=== PATIENT | female | born 1935 | race African-American/Black ===

== ENCOUNTER 2016-11-30 08:00 | Inpatient (IN) | payer MEDICARE ==
[~2016-11-30] VITALS: Ht 160 cm; Wt 101.6 kg
--- NOTE | ~2016-11-30 | OP ---
PATIENT NAME: TAWANA MARLOW MEDICAL RECORD: [id number] :37 LOCATION:D. D.2108 ADMISSION DATE:12/02/16 SURGEON: DOM SHEARER MD DATE OF OPERATION: 11/30/2016 REFERRED BY: Dr. Aníbal Hays of [place]. PREOPERATIVE DIAGNOSIS: Malfunctioning tunneled dialysis catheter with a catheter displacement and thrombosed left brachial axillary PTFE arteriovenous graft. POSTOPERATIVE DIAGNOSIS: Malfunctioning tunneled dialysis catheter with a catheter displacement and thrombosed left brachial axillary PTFE arteriovenous graft, with central venous obstruction due to chronic indwelling tunneled dialysis catheter. OPERATION PERFORMED: Ultrasound-guided basilic vein access in the left arm with micropuncture technique and performance of a left upper extremity venogram, then removal of tunneled dialysis catheter from the left internal jugular vein, performance of a superior vena cavogram followed by insertion of a HeRO outflow device positioning its tip deep in the right atrium. Then, insertion of an Acuseal PTFE early stick graft in the left arm between the old brachial artery anastomosis and the HeRO outflow stent in the deltopectoral groove. SURGEON: Dom Shearer MD ANESTHESIA: General endotracheal per SEISMOGRAPHER. LOCAL PATHOLOGIST: Dr. Emmanuel Panda. PREOPERATIVE NOTE: Ms. Marlow is a 81-year-old -Vietnamese female with end-stage renal disease, dependent on hemodialysis. She has had several PTFE grafts a couple in the right upper extremity and 1 in the left upper extremity, the 1 on the left has had multiple interventions and at present is thrombosed. She has been dialyzing now for quite a long time with a tunneled dialysis catheter placed in the left internal jugular vein. She is brought to the operating room at this time with plans to perform a venogram to see if it is likely a new brachial artery to axillary vein graft. Graft would be the thing to do or rather, she perhaps should have a HeRO graft implanted. I do have a 6 mm diameter ProCol graft here available for use today if she is going to have the brachial axillary graft. PROCEDURE: With patient under general endotracheal anesthesia, she was prepped and draped in a sterile manner. I first made an incision above the antecubital space and exposed the previous brachial artery PTFE graft anastomosis. I occluded the brachial artery and transected the old PTFE graft and then performed a thrombectomy with a Khadijah balloon catheter, 4-Equatorial Guinean. I then flushed the artery and the stump of the graft with heparinized saline and occluded the graft there by just using local heparinization. I chose a 6-mm diameter Acuseal early stick PTFE graft and sutured it end-to-end to the stump of the old PTFE graft with running 6-0 Prolene. The anastomosis was further sealed with BioGlue. I then allowed back bleeding through the graft and demonstrated good brisk arterial inflow and then again flushed the graft and the artery with heparinized saline and clamped it. I then went to the neck and made an incision at the base of the neck on the left and exposed the tunneled OPERATIVE REPORT [id number] TAWANA MARLOW dialysis catheter, clamped and divided it. I then bluntly dissected the Dacron felt cuff from the surrounding tissues at the exit site and removed that portion and discarded it. I inserted a guidewire via the remaining intravascular segment of catheter and found that the guidewire actually passed into the azygos venous system. I removed the remaining portion of the catheter and with an angled Glidewire, directed down the superior vena cava and into the right atrium and then on down into the inferior vena cava. I performed a catheter exchange placing an Amplatz wire deep in the inferior vena cava and inserted a 7-Equatorial Guinean sheath in order to perform a venogram. I did use a pursestring suture of 3-0 Vicryl. The superior vena cavogram was performed. This demonstrated mild general stenosis of the brachiocephalic vein and no evidence of significant superior vena cava, obstruction or any abnormality of the right atrium. I subsequently passed dilators over the Amplatz wire and lastly the HeRO outflow stent was inserted over an 8 mm diameter angioplasty balloon. The tip of the device was placed deep in the right atrium just above the cavoatrial junction. Contrast was injected confirming appropriate placement. The outflow device was then flushed with heparinized saline and clamped. I made an incision in the deltopectoral groove and carried that down to the investing pectoral fascia. Hemostasis was obtained with electrocautery and the HeRO device was pulled through a subcutaneous tunnel into that incision. I made a subcutaneous tunnel and pulled the Acuseal graft from the incision down just above the elbow up to the deltopectoral groove and it was then connected to the HeRO outflow device and when occluding clamps were released, excellent flow was immediately established and the graft manifest by strong palpable thrill and appropriate pulsation in the graft. The Acuseal HeRO junction was secured to the pectoral fascia with a 2-0 Prolene suture. The wounds were irrigated with Ancef/gentamicin solution. They were closed with interrupted inverted 3-0 Vicryl. The patient was given 20 mcg of DDAVP to help achieve hemostasis and the skin incisions were closed with running intracuticular 4-0 Monocryl. The skin incisions were sealed with glue and dressed with Maxorb Ag, Tegaderm and Cavilon skin prep. The patient was awakened and extubated and taken to the recovery room. Blood loss in the operation was less than 100 cc, certainly none was replaced. All sponges, instruments and needles, etc. were accounted for. No drain was used and no surgical specimen was submitted for histopathology. PLAN: I plan for the patient to remain in hospital this evening and have dialysis here tomorrow via Acuseal protocol. Whether she can go home tomorrow or the next, will just depend on how she does at 81 years old after a significant operation under general anesthesia. When she does go home, it is important that the dialysis unit in [place] know about Acuseal protocol and follow that for the next 2 weeks. I will plan to see the patient back in my office in 2 weeks as well. The bandages will probably need to be changed within the next 4-6 or 7 days and when the dressings are removed, it can be replaced with simple sterile dry gauze bandages. TRANSINT:[id number] Voice Confirmation ID: [id number] DOCUMENT ID: [id number] CC: Dr. Aníbal Hays [place] [phone] OPERATIVE REPORT [id number] TAWANA MARLOW JAMES MD CC: EMMANUEL PANDA MD and DR. ANÍBAL HAYS [phone] DICTATION DATE: 11/30/161733 TREE LOADER MEAT: 11/30/162156 ADM IN [id number] [place] [address]
--- NOTE | ~2016-11-30 | OP ---
PATIENT NAME: TAWANA MARLOW MEDICAL RECORD: [id number] :37 LOCATION:D.M2 D.2108 ADMISSION DATE:12/02/16 SURGEON: DOM SHEARER MD DATE OF OPERATION: 12/01/2016 PREOPERATIVE DIAGNOSIS: Postoperative bleeding on postoperative day 1 following implantation of a HeRO AV graft in the left arm. POSTOPERATIVE DIAGNOSIS: Postop bleeding of unclear etiology, likely associated with heparin anticoagulation administered at hemodialysis at first access of HeRO. OPERATION PERFORMED: Wound exploration and evacuation of hematoma and repeat wound closure. SURGEON: Dom Shearer MD ANESTHESIA: General with LMA per CAP MACHINE OPERATOR. REFERRING PHYSICIAN: Dr. Hays in [place], asphalt machine operator and locally Dr. Panda. PREOPERATIVE NOTE: Ms. Marlow is a 81-year-old morbidly obese -Cook Islander female with end-stage renal disease, who only yesterday had a HeRO AV graft implanted in the left upper extremity that was done with an Acuseal PTFE portion, so that she could dialyze today as during the operation, I removed her tunneled dialysis catheter from the left internal jugular vein. Despite use of the "Acuseal protocol" during dialysis today, the patient began hemorrhage quite heavily from the incision over the distal arm around the site of the arterial anastomosis. She has returned to the operating room at this time urgently, though she is not actively bleeding at this time. Under general anesthetic with an LMA per CAP MACHINE OPERATOR, the patient was found to have no adequate IV and so I examined her with ultrasound and noted the right internal jugular vein to be absent or small, probably from prior catheter use. I then went on to insert an ARROWg+lexis triple lumen catheter percutaneously without tunneled using ultrasound guidance via the left common femoral vein. All 3 lumens were accessed and aspirated, they returned blood easily. They were then flushed with saline and dilute heparin solution, clamped and capped and then the catheter was sutured to the skin near the entry site with 2-0 Prolene and a chlorhexidine Biopatch was applied and a sterile adhesive dressing. The patient's arm was then undressed and prepped and draped in a sterile manner. I removed the bloody Maxorb calcium alginate dressing from the incision along with the skin glue and then opened the incision gently. I found that there was only a modest amount of clot or hematoma present within the wound and there was really no active bleeding. A few sites of capillary oozing were treated with electrocautery. The wound was irrigated and then infiltrated with 0.25% Marcaine with epinephrine. I placed some fibrillar hemostatic material around the arterial anastomosis, which was intact and showed no evidence, whatsoever of having been partially disrupted or bleeding. The wound was closed with interrupted inverted 3-0 Vicryl and then running intracuticular 4-0 Monocryl and Dermabond glue and it was once again dressed with Maxorb Ag, Tegaderm and Cavilon skin prep. The patient was awakened from her anesthetic and taken to the recovery room in OPERATIVE REPORT [id number] TAWANA MARLOW stable condition. Blood loss during the operation was 0. All sponges, instruments and needles were accounted for. No drain was used and no surgical specimen was submitted for histopathology. PLAN: The patient should have dialysis tomorrow via the HeRO/Acuseal graft and probably as well on Tuesday and then if all is well, she can be discharged to home. I have asked the [employer] parts sales advisor to contact the dialysis unit in [place] to be sure that they are familiar with an understanding the need for "acuseal protocol" for the next 2 weeks. The patient is to be scheduled to return appointment to see me in my office at around 2 weeks. TRANSINT:[id number] Voice Confirmation ID: [id number] DOCUMENT ID: [id number] CC: Dr. Aníbal Hays, DOM SHEARER MD CC: EMMANUEL PANDA MD and DR. ANÍBAL HAYS [phone] DICTATION DATE: 12/01/162044 TILE FINISHER: 12/01/16 392 ADM IN [id number] [place] [address]
[2016-11-30 08:57] LABS: BASOPHILS 0.2 % (0-2); EOSINOPHILS 4.2 % (0-7); HEMATOCRIT 38.2 % (36.0-48.0); HEMOGLOBIN 11.8 g/dL (12-16); IMMATURE GRANULOCYTES 0.2 % (0-5); LYMPHOCYTES 25.5 % (15-50); MCH 25.5 pg (26.0-34.0); MCHC 30.9 g/dL (31.0-37.0); MCV 82.5 fL (80.0-100.0); MEAN PLATELET VOLUME 10.9 fL (7.4-10.4); MONOCYTES 12.5 % (2-11); NEUTROPHILS 57.4 % (40-80); PLATELET COUNT 132 10x3/uL (130-400); RBC 4.63 10x6/uL (4.00-5.40); RDW 15.8 % (11.5-14.5)
[2016-11-30 09:06] LABS: ANION GAP 12.5 mmol/L (8-16); CALCIUM 9.7 mg/dL (8.5-10.1); CARBON DIOXIDE 27.4 mmol/L (21.0-32.0); POTASSIUM - SERUM 3.9 mmol/L (3.5-5.1)
[2016-11-30 09:08] LABS: APTT 37.4 SECONDS (22.8-39.4); INR 1.21 (0.85-1.17); PROTIME 15.2 SECONDS (11.6-15.0)
[2016-11-30] MEDS ORDERED: RENVELA800 MG PO (10:43)
[2016-11-30 10:58] VITALS: BP 180/83; BMI 39.9
[2016-11-30 20:00] VITALS: BP 153/63
--- NOTE | 2016-11-30 20:04 | NUR ---
REPORT CALLED TO BARTOLO FRANCIS RN, MED 2, PATIENT TRANSPORTED BY STRETCHER TO ROOM 2108, PATIENT WITHOUT COMPLAINTS OR NOTED NEEDS, LEFT ARM AV GRAFT WITH VERY WELL PALPATED THRILL, TWO SMALL DRESSINGS C/D/I
--- NOTE | 2016-11-30 20:22 | NUR ---
PT ARRIVED ON W/C VIA STRECTHER BY HOSPITAL STAFF AND DAUGHTER. TRANSFERED PT FROM STRETCHER TO W/C. PT IS ALERT & ORIENTED. NO O2. RIGHT UPPER ARM 22GAUGE SALINE LOC. LEFT ARM RESERVE. LEFT AC AND SHOULDER DRESSING. BED IN LOWEST POSITION AND CALL LIGHT WITHIN REACH.
[2016-12-01] VITALS (11 sets, daily range): BP systolic 114–180; BP diastolic 42–92; Ht 160 cm; Wt 101.6 kg
--- NOTE | 2016-12-01 00:39 | NUR ---
RN TO DO ASSESSMENT.
--- NOTE | 2016-12-01 02:11 | NUR ---
PT IN BED WITH HOB ELEVATED. RESTING QUIETLY. DAUGHTER AT BEDSIDE. BED IN LOWEST POSITION AND CALL LIGHT WITHIN REACH.
--- NOTE | 2016-12-01 07:46 | NUR ---
AM ROUNDING- RECIEVED REPORT FROM CODE NUMBER STAMPER NURSE BARTOLO. PT IS CURRENTLY LAYING IN BED WITH EYES OPEN RESTING. DAUGHTER IS AT BEDSIDE. PT IS ASKING WHEN SHE WILL GO FOR DIALYSIS. I INFORMED PT THAT I AM NOT EXACTLY SURE WHAT TIME SHE WILL BE GOING AND THAT THEY WILL CALL WHEN SHE NEEDS TO GO. ON ROOM AIR. NO MONITOR. IV SEEN TO RIGHT UPPER ARM. RESERVE LEFT ARM FOR AVF. CLEAN, DRY AND INTACT DRESSING SEEN. DRESSING SEEN TO LEFT UPPER CHEST FROM PROCEDURE PER REPORT. NO NEED AT CURRENT TIME. JAYLENE MCFARLAND WENT AND GAVE PT ORANGE JUICE REQUESTED. WILL CONTINUE TO MONITOR AND CONTINUE WITH PLAN OF CARE.
--- NOTE | 2016-12-01 14:54 | NUR ---
PT TO DIALYSIS VIA WHEELCHAIR.
--- NOTE | 2016-12-01 16:19 | NUR ---
PT BACK FROM DIALYSIS, JULIA RN NOTIFIED ME OF PT BLEEDING IN GRAFT SITE. DR. NUÑEZ WENT TO DIALYSIS TO ASSESS PT AND IS AWARE. PER DR. NUÑEZ PT IS TO HAVE SURGERY WITH DR. COLON AND DR. COLON IS AWARE. PT IS AWARE TO NOT EAT OR DRINK ANYTHING. LOC MOCTEZUMA, KENO WRITER/RUNNER IS GETTING CONSENTS SIGNED AND DOING PRE-OP CHECKLIST. LEFT UPPER ARM SITE IS COVERED WITH KOBAN CURRENTLY WITH NO SIGN OF BLEEDING. WILL CONTINUE TO MONITOR.
--- NOTE | 2016-12-01 16:48 | NUR ---
PT PREOP FOR OR. CONSENTS SIGNED . PREOP MEDS GIVEN. AND LR 1000CC STARTED.
--- NOTE | 2016-12-01 16:52 | NUR ---
EKG DONE AND PLACED IN CHART. PT PLACED ON MONITOR ORDERED. LOC MOCTEZUMA, UNIT MANGAGER HAD CONSENTS SIGNED AND PLACED IN CHART. PT IS NPO ORDERED. NO BLEEDING SEEN FROM LEFT UPPER ARM. WILL CONTINUE TO MONITOR.
--- NOTE | 2016-12-01 18:16 | NUR ---
Patient Name: TAWANA MARLOW Admission Status: Elective Accout number: [id number] Admission Date: 11-30-2016 : 1935 Admission Diagnosis: Attending: JANNY Current LOS: 1 Anticipated DC Date: Planned Disposition: Home Primary Insurance: MEDICARE A & B Discharge Planning Comments: * Is the patient Alert and Oriented? Yes 0 * How many steps to enter\exit or inside your home? NONE 0 * PCP NONE 0 * [facility]acy [facility] IN [place] 0 * Preadmission Environment Home with Family 0 * ADLs Partial Dependent 0 * Partial ADLs (Assistance needed) Bathing Medication Management Transfers 0 * Equipment Nebulizer Oxygen Walker 0 * Other Equipment HOME OXYGEN ONLY-USES NEEDED [place] - MEDICAL EQUIPMENT PROVIDER 0 * List name and contact numbers for known caregivers / representatives who currently or will assist patient after discharge: OPHELIA FERNANDEZ DTR, [phone] 0 * Community resources currently utilized Other 0 * Please name any agencies selected above. OUTPATIENT DIALYSIS, M/W/F, 0430 AM, [facility] IN [place], [facility] MEDICAID TRANSPORTATION 0 * Additional services required to return to the preadmission environment? No 0 * Can the patient safely return to the preadmission environment? Yes 0 * Has this patient been hospitalized within the prior 30 days at any hospital? No 0 CM RECEIVED REQUEST FROM TILE PICKER TO ASSIST PT'S DAUGHTER WITH CONTACTING MEDICAID TRANSPORTATION FOR RIDE HOME TODAY. CM MET WITH PT AND DAUGHTER IN ROOM TO DISCUSS DISCHARGE PLANNING AND NEEDS. PT REPORTS LIVING AT HOME DEPENDENT WITH ADULT DAUGHTER. DAUGHTER ASSISTES WITH GETTING PT UP, BATHING AND MEDICATION NEEDED. DAUGHTER SOMETIMES ACCOMPANIES PT ON MEDICAID BUS TO DIALYSIS AN ATTENDANT. PT HAS HOME OXYGEN, NEBULIZER AND WALKER FROM [facility]. PT HAS DIALYSIS AT [facility] ON MWF 0430AM SCHEDULE AND USES MEDICAID TRANSPORTATION SERVICES. CM DISCUSSED AVAILABILITY OF HOME HEALTH, REHAB SERVICES AND MEDICAL EQUIPMENT. PT DENIES DISCHARGE NEEDS AT THIS TIME. PT'S DAUGHTER REPORTS THEY ARE KEEPING HER MOTHER FOR SURGERY AND DAUGHTER WANTS MEDICAID TRANSPORT TO TAKE HER HOME AT NO COSTS. CM EXPLAINED THAT MEDICAID TRANSPORT WILL NOT DO THIS FOR FREE. DAUGHTER INSISTED THAT CM CALL [facility] DEVELOPMENT ASSOCIATE [facility] TO REQUEST THE TRIP. CM CALLED [facility], , LEFT MESSAGE. CM CALLED MEDICAID TRANSPORT CALL CENTER, , SPOKE TO CHARISSE WHO REPORTS MEDICAID WILL NOT PROVIDE THE CAREGIVER A FREE RIDE WITHOUT THE PATIENT. CHARISSE SUGGESTED CM CALL [facility] FOR WHITING LEVINE FOR THE DAUGHTER. CM CALLED [facility] IN [place], . DARIEL ADVISED THAT NO TRANSPORT AVAILABLE TODAY AND IT WILL COST $68 FOR DAUGHTERS TRANSPORT. CM NOTIFIED PT AND DAUGHTER. DAUGHTER DID NOT WANT CM TO ARRANGE A TRANSPORT HOME AT HER EXPENSE. PATIENT DENIES DISCHARGE NEEDS AT THIS TIME, WILL DISCHARGE HOME WITH ASSISTANCE OF DAUGHTER. FOR DISCHARGE HOME, PT AND DAUGHTER WILL NEED TRANSPORTATION ARRANGED WITH MEDICAID TRANSPORT CALL CENTER, , WITH MUCH NOTICE POSSIBLE; THE DAY BEFORE IF POSSIBLE. Scheduling Specialist: Jaswinder Wright
--- NOTE | 2016-12-01 18:21 | NUR ---
PT IS CURRENTLY LAYING IN BED ON BACK WITH EYES OPEN RESTING. PT IS WONDERING WHEN SHE WILL BE GOING TO SURGERY. I INFORMED PT THAT THE OR WOULD CALL TO INFORM ME WHEN PT WILL BE GOING. LOC MOCTEZUMA, CORPORATE COMMUNICATIONS ASSOCIATE ALREADY GAVE PT PRE-OP MEDICATIONS, (DR. NUÑEZ STATES PT WOULD BE GOING QUICKLY). PTS DAUGHTER IS AT BEDSIDE. PT DAUGHTER STATES RUDELY, "CAN YALL GET ME MY OWN BED SO I DON'T HAVE TO LISTEN TO HER YELL AND BE STUPID", PTS DAUGHTER REFFERING TO PT. PTS DAUGHTER STATES "STUPID ASS" AFTER PT ASKED ME WHEN SHE WOULD BE GOING TO SURGERY. I INFORMED PTS DAUGHTER THAT WE CANNOT GET HER A ROOM TO HERSELF BECAUSE THAT IS FOR PTS TO ARE ADMITTED TO THIS UNIT. THIS NURSE CHECKED PTS DRESSING WRAPPED WITH KOBAN TO PTS LEFT UPPER ARM, NO BLEEDING SEEN FROM THIS SITE. PT IS NPO FOR PROCEDURE. CONSENTS ARE SIGNED AND IN CHART. EKG IS DONE AND IN CHART. WILL CONTINUE TO MONITOR.
--- NOTE | 2016-12-01 18:59 | NUR ---
PT TO OR VIA BED.
--- NOTE | 2016-12-01 21:10 | NUR ---
Received report from Lyla ROBERTSON in [facility] regarding patient's condition and would be transported to unit in a few minutes. Daughter waiting in patient room.
--- NOTE | 2016-12-01 21:16 | NUR ---
81 yr old female received on bed from Recovery Room post surgery. RR Nurse accompanied patient. Per report patient had gone to have dialysis earlier today and before dialysis could be performed, atery ruptured. Went to surgery, performed a Wound Exploration and evacuated a hematoma from patient's left fistula. Bandage is on at the bend of her elbow covered with transparent film. Attempted to give antibiotics via her PIV in right upper arm but was unsuccessful. PIV removed. inserted a triple lumen Central Line in left groin. Currently has oxygen on via nasal cannula @4L/min. Ox sat = 91% Patient has a hx of CHF, HTN, DM, COPD with home oxygen, and ESRD. Patient had come in as outpatient to have her scheduled dialysis and then be discharged back home to [place] (2 hours away). Daughter is at bedside very dramatic, crying, wanting hospital staff to provide her with a ride home or a hospital bed for the night. Pull out chair at bedside. Has been informed hospital cannot provide her with transportation home and cannot use a patient bed for a visitor.
--- NOTE | 2016-12-01 21:49 | NUR ---
UPON ARRIVAL TO FLOOR, PTS PULSE OX READING 90% ON 4LNC. NOTIFIED RT OF UPDRAFT ORDERED AND PLACED ON OXYMIZER AT 10L. WILL NOTIFY ANESTHESIA.
--- NOTE | 2016-12-01 21:54 | NUR ---
RT AT BEDSIDE DOING UPDRAFT. SPO2 IMPROVING TO 93%
--- NOTE | 2016-12-01 22:01 | NUR ---
Pulse ox dropping to between 84 to 88% on oxygen via nc @4L/min. Resp Tech on unit, oximizer placed on with oxygen @15L/min. Pulse ox back up to 94 to 95% Patient lethargic and drowsy with slurred speech. Does respond to her name, unable to assess for furthur orientation at this time. BP cuff on lower right leg.
--- NOTE | 2016-12-01 22:15 | NUR ---
secured entrance monitor placed on.
--- NOTE | 2016-12-01 22:19 | NUR ---
BG check done, = 168. Hands cool but dry. Poor circulation, per report patient did have an old fistula site in upper right arm. Has dressing over upper left chest covered with transparent film and over upper left arm.
--- NOTE | 2016-12-02 | NUR ---
Repostitioned in bed, daughter at bedside loud and disruptive, spoke to daughter emphasized that patient needs her rest. Escorted to ICU waiting room and encouraged to rest there for the night to allow her mother to rest. Daughter refused to stay there and is back in patient's room.
[2016-12-02 00:01] VITALS: BP 142/53
[2016-12-02 01:01] VITALS: BP 134/58
--- NOTE | 2016-12-02 01:50 | NUR ---
Patient tangled up in telemetry leads and has pulled off pulse ox cable. Telemetry pads replaced and pulse ox retaped to finger. Daughter at bedside, agitated and restless, wailing about wanting to go home and asking patient if she wants to go home. Told daughter, patient needs 'quiet' and needs to rest post her surgery. Daughter calming down. Daughter had all the lights on in the patient room, turned same off to promote sleep and left door ajar to view patient.
[2016-12-02 02:01] VITALS: BP 138/61
[2016-12-02 03:01] VITALS: BP 133/63
--- NOTE | 2016-12-02 04:07 | NUR ---
Patient again confused, disoriented only responds to her name, has pulled off pulse ox and partial leads to telemetry. All were reattached. Per Supervisor Throwing Department heart rhythm is SR, and HR in the 60s to 70s/min now. Was in ST first part of the shift. Daughter not in room at present. Patient is alone.
[2016-12-02 05:15] LABS: BASOPHILS 0 % (0-2); EOSINOPHILS 0 % (0-7); HEMATOCRIT 33.6 % (36.0-48.0); HEMOGLOBIN 10.2 g/dL (12-16); IMMATURE GRANULOCYTES 0.4 % (0-5); LYMPHOCYTES 7.5 % (15-50); MCH 25.5 pg (26.0-34.0); MCHC 30.4 g/dL (31.0-37.0); MONOCYTES 7.8 % (2-11); NEUTROPHILS 84.3 % (40-80); PLATELET COUNT 118 10x3/uL (130-400); RDW 16.2 % (11.5-14.5)
[2016-12-02 05:22] LABS: WBC 10.7 10x3/uL (4.8-10.8)
--- NOTE | 2016-12-02 05:30 | NUR ---
cardiac monitor on, rhythm has varied between ST and SR, mostly ST first part of shift with HR 103 to 109/min, latter part of shift mostly SR with HR dropping from the 90s to the high 60s/min.
[2016-12-02 05:38] LABS: INR 1.17 (0.85-1.17); PROTIME 14.8 SECONDS (11.6-15.0)
[2016-12-02 05:44] LABS: ANION GAP 13.4 mmol/L (8-16); CARBON DIOXIDE 27.9 mmol/L (21.0-32.0); PHOSPHOROUS 6.8 mg/dL (2.5-4.9); POTASSIUM - SERUM 4.3 mmol/L (3.5-5.1)
[2016-12-02 05:52] LABS: CREATININE - SERUM 8.6 mg/dL (0.6-1.3)
--- NOTE | 2016-12-02 07:00 | NUR ---
ASSESSMENT COMPLETE PER FLOWSHEET VOICES NO CO AT TIME. DAUGHTER AT THE BED SIDE.
[2016-12-02 08:33] VITALS: BP 128/46
--- NOTE | 2016-12-02 11:45 | NUR ---
TO HD VIA BED.
[2016-12-02 12:01] VITALS: BP 130/54
--- NOTE | 2016-12-02 15:30 | NUR ---
BACK FROM . [place] TO HOME VIA SCAT.
--- NOTE | 2016-12-02 16:00 | NUR ---
LEFT WITH DAUGHTER VIA SCAT.
--- NOTE | 2016-12-02 16:22 | NUR ---
Patient Name: TAWANA MARLOW Encounter No: [id number] : 1935 Primary Insurance: MEDICARE A & B Anticipated DC Date: 12-02-2016 Planned Disposition: Home DCP follow-up note: CM RECEIVED DISCHARGE ORDER, CM MET WITH PT'S DAUGHTER IN ROOM WHO REPORTS THEY WANT TO GO HOME TODAY AND FOR CM TO CALL MEDICAID TRANSPORTATION. PT'S DAUGHTER DENIES OTHER DISCHARGE NEEDS. CM CALLED MEDICAID TRANSPORT CALL CENTER, , SPOKE TO ALICE WHO REPORTS THEY WILL SCHEDULE TITLE PROCESSOR FOR SOMETIME TODAY, SHE DOES NOT KNOW WHAT TIME TODAY OR TONIGHT THE TITLE PROCESSOR WILL BE. CONFIRMATION [id number]. PT'S DAUGHTER NOTIFIED WHO HAS PT'S WHEELCHAIR AND WILL ASSIST PT HOME TODAY. LABEL FOLDER NOTIFIED. MEDICAID TRANSPORT BUS WILL CALL NURSES STATION WHEN THEY ARRIVE FOR PT TO BE TAKEN DOWNSTAIRS TO FRONT ENTRYWAY FOR TRANSPORT HOME. Bus Trolley And Taxi Instructor: Jaswinder Wright
== END 2016-12-02 17:43 | disposition home or self-care (01) | DRG 252 ==
LOC: D.SDCHOLD 08:00 → D.M2 08:00 → EDSTATUS 10:00 → D.OPS 10:00 → OBSVTIME 17:08 → D.M2 20:11
PROVIDERS: Surgery; ADMIT Internal Medicine Nephrology
PROC: B51N1ZZ Fluoroscopy of Left Upper Extremity Veins using Low Osmolar Contrast (ICD-10-PCS; 2016-11-30)
PROC: 05PYX3Z Removal of Infusion Device from Upper Vein, External Approach (ICD-10-PCS; 2016-11-30)
PROC: B5181ZZ Fluoroscopy of Superior Vena Cava using Low Osmolar Contrast (ICD-10-PCS; principal; 2016-11-30 10:00)
PROC: 03180JD Bypass Left Brachial Artery to Upper Arm Vein with Synthetic Substitute, Open Approach (ICD-10-PCS; 2016-11-30 10:00)
PROC: 05CC0ZZ Extirpation of Matter from Left Basilic Vein, Open Approach (ICD-10-PCS; 2016-12-01)
PROC: 5A1D60Z (ICD-10-PCS; 2016-12-01)
PROC: 06HN33Z Insertion of Infusion Device into Left Femoral Vein, Percutaneous Approach (ICD-10-PCS; 2016-12-01)
PROC: B54CZZA Ultrasonography of Left Lower Extremity Veins, Guidance (ICD-10-PCS; 2016-12-01)
DX: T82.520A Displacement of surgically created arteriovenous fistula, initial encounter (principal); N18.6 End stage renal disease; I97.638 Postprocedural hematoma of a circulatory system organ or structure following other circulatory system procedure; I12.0 Hypertensive chronic kidney disease with stage 5 chronic kidney disease or end stage renal disease; Y83.8 Other surgical procedures as the cause of abnormal reaction of the patient, or of later complication, without mention of misadventure at the time of the procedure; E11.22 Type 2 diabetes mellitus with diabetic chronic kidney disease; Z99.2 Dependence on renal dialysis; E83.39 Other disorders of phosphorus metabolism; D63.1 Anemia in chronic kidney disease; T82.868A Thrombosis due to vascular prosthetic devices, implants and grafts, initial encounter

== ENCOUNTER 2017-04-01 12:32 | Observation (INO) | payer MEDICARE ==
[~2017-04-01] VITALS: Ht 160 cm; Wt 113.6 kg
--- NOTE | ~2017-04-01 | OP ---
PATIENT NAME: TAWANA MARLOW MEDICAL RECORD: [id number] :37 LOCATION:D. D.2105 ADMISSION DATE:04/01/17 SURGEON: DOM SHEARER MD DATE OF OPERATION: 04/02/2017 REFERRING PHYSICIAN: Dr. Panda. PREOPERATIVE DIAGNOSIS: End-stage renal disease with thrombosis of arteriovenous access. POSTOPERATIVE DIAGNOSIS: End-stage renal disease with thrombosis of arteriovenous access. ADDITIONAL DIAGNOSIS: New diagnosis of a new-onset atrial fibrillation with rapid ventricular response. OPERATIONS PERFORMED: Insertion of a 35 cm HemoSplit tunneled dialysis catheter via the right common femoral vein done with ultrasound and fluoroscopic guidance under TIVA per TITLE I DIRECTOR and additional local 1% lidocaine. SURGEON: Dom Shearer MD PREOPERATIVE NOTE: This 82-year-old demented -Guinean female with end-stage renal disease, on chronic hemodialysis with a left upper extremity HeRo AV graft, presented with her graft thrombosed and was admitted to the hospital yesterday. Today, she is brought to the operating room initially for a fistulogram and thrombectomy. I performed what I thought was a successful angiogram with AngioJet mechanical thrombolysis and balloon angioplasty of areas of stenosis within the graft and juxta-anastomotic segment and in the operating room, her graft was functioning quite nicely. In the recovery room, however, after about 20 minutes, we noted that her fistula was silent and there was no pulsatile Doppler flow or audible bruit. She is returned to the operating room for insertion of a HemoSplit catheter so that she can have dialysis today. DESCRIPTION OF THE PROCEDURE: Under TIVA in supine position, the patient first was examined with ultrasound. Her right neck was insonated and noted that the right internal jugular vein was absent due to sclerosis from prior catheters. I then examined the right groin and noted that the right common femoral vein was patent. She was then again prepped and draped in a sterile manner and local anesthetic used as needed. I made an incision just beneath the groin crease and then with ultrasound guidance, I inserted a micropuncture needle directly into the common femoral vein. A guidewire was inserted and the catheter exchange type of procedure lead to passage of several dilators and finally a peelaway dilator introducer. Fluoroscopy confirmed its proper orientation and insertion of the guidewire and dilators. I chose a 35 cm HemoSplit and made an incision on the anterolateral thigh and pulled the catheter from there through a subcutaneous tunnel up to the groin incision. The catheter was inserted through the peel-away sheath as it was removed. The catheter was positioned appropriately in the distal inferior vena cava. There was no bleeding at the incision site. Both lumens were aspirated, free return of blood from each was confirmed. They were then flushed with saline and finally heparin locked, clamped, and capped. The catheter was sutured to the skin near the entry site with 2-0 Prolene and the groin incision closed with interrupted inverted 3-0 Vicryl and Dermabond glue and a dressing OPERATIVE REPORT [id number] TAWANA MARLOW there of Maxorb Ag, Tegaderm and Cavilon skin prep was applied. The standard central venous line dressing was applied to the catheter at the exit site, which included a chlorhexidine-impregnated Bio disc. During the procedure, the TITLE I DIRECTOR noted the patient had gone into atrial fibrillation. Her preop EKG is definitely a sinus rhythm, but she now is in atrial fibrillation, now in the recovery room with a ventricular rate of 110. Plan to place her on telemetry on the floor and obtain cardiology consult if okay with nephrology and I really do not have a history of the patient having had episodic atrial fib in the past, though she may have. She needs to dialyze this evening and we get to see how the atrial fibrillation might complicate that process. TRANSINT:[id number] Voice Confirmation ID: [id number] DOCUMENT ID: [id number] DOM SHEARER MD at 1519 CC: EMMANUEL PANDA MD and SALOME VILLARREAL MD [id number] DICTATION DATE: 04/02/172009 RACKING TECHNICIAN: 04/02/172135 DIS IN 04/03/[address] [facility] [address] [place] [address]
--- NOTE | ~2017-04-01 | OP ---
PATIENT NAME: TAWANA MARLOW MEDICAL RECORD: [id number] :37 LOCATION:D.M2 D.2105 ADMISSION DATE:04/01/17 SURGEON: DOM SHEARER MD DATE OF OPERATION: 04/02/2017 PREOPERATIVE DIAGNOSIS: End-stage renal disease with thrombosed dialysis access, left upper extremity HeRO graft. POSTOPERATIVE DIAGNOSIS: End-stage renal disease with thrombosed dialysis access, left upper extremity HeRO graft. OPERATIONS PERFORMED: Angiography of dialysis access or dialysis circuit with ultrasound-guided access and AngioJet mechanical thrombolysis and balloon angioplasty of stenosis in the juxta-anastomotic segment of the PTFE graft and another stenosis in the mid body of the graft. Also selective left brachial artery angiogram. SURGEON: Dom Shearer MD ANESTHESIA: General with LMA per CLERICAL ASSOCIATE. COMPLICATIONS: Acute thrombosis of AV graft in the recovery room postoperatively. PREOPERATIVE NOTE: Ms. Marlow is an 82-year-old demented -Omani female with morbid obesity and a host of medical illnesses including end-stage renal disease. She dialyzes with a left upper extremity AV HeRO graft. She is on Coumadin. Her INR is actually greater than 3 yet she has thrombosed her access. She is not dialyzed in several days and is brought to the operating room now to try to open her HeRO graft. PROCEDURE IN DETAIL: Under anesthesia in the supine position, the patient was prepped and draped in the sterile manner. The body of the graft was accessed in a retrograde direction towards the arterial anastomosis. This was done with micropuncture technique and ultrasound guidance and this led up to insertion of a 6-Ugandan introducer. The Glidewire was advanced through the graft and easily through the arterial anastomosis and then to the brachial artery. I used an AngioJet then to lyse and suction a clot from the arterial side of the graft. I then inserted a [place] catheter over the wire selectively into the distal brachial artery and performed an arteriogram, which demonstrated no evidence of embolus. There was filling of the brachial artery to the mid humeral level and no flow in the AV graft. I used a Khadijah catheter then to remove or pull the plug in the arterial anastomosis and a repeat angiogram demonstrated a very short but a severe stenosis of the juxta-anastomotic segment, which I then dilated with a 6-mm diameter angioplasty balloon. Repeat angiography revealed some persistent narrowing or persist irregularity of the wall in that area but no significant residual stenosis. I then inserted a second 6-Ugandan introducer into the arterial side of the graft directed antegrade that is towards the torso. This was also done with ultrasound guidance and micropuncture technique and a 6-Ugandan introducer eventually placed over a Glidewire and I then used an AngioJet catheter to lyse the thrombus within the HeRO outflow device and body of the graft. Repeat contrast injection revealed significant stenosis of the body of the graft, which was then also dilated with a 6-mm diameter balloon and I used the same balloon to dilate the entire length of PTFE. Repeated contrast injection revealed a satisfactory result and brisk flow in the fistula. The OPERATIVE REPORT [id number] TAWANA MARLOW patient had been given 3000 units of heparin intraoperatively. She was given 10 mg of protamine at the conclusion. The hardware was removed and the puncture sites were closed with [id number] 4-0 Prolene and hemostasis was obtained after a period of direct pressure then. The puncture sites were dressed with Ultrafoam, Cavilon, and Tegaderm dressings. She was then awakened and taken to the recovery room. In the recovery room, the patient was noted to have no Doppler flow in the graft. She will be returned to the operating room now for placement of a HemoSplit catheter. TRANSINT:[id number] Voice Confirmation ID: [id number] DOCUMENT ID: [id number] DOM SHEARER MD at 1511 CC: EMMANUEL NUÑEZ MD [id number] DICTATION DATE: 04/02/171852 CLINICAL LABORATORY ASSISTANT: 04/02/172020 DIS IN 04/03/17 [facility] [address] [place] [address]
[~2017-04-01 12:32] MED LIST: RENVELA800 MG PO
[2017-04-01 13:10] VITALS: BP 120/72; BMI 44.3
[2017-04-01] MEDS ORDERED: BAYER CHEWABLE81 MG PO (13:35)
[2017-04-01] MEDS ORDERED: SYNTHROID25 MCG PO (13:36)
[2017-04-01] MEDS ORDERED: SENSIPAR30 MG PO (13:36)
[2017-04-01] MEDS ORDERED: RENVELA800 MG PO (13:36)
[2017-04-01] MEDS ORDERED: COUMADIN5 MG PO (13:37)
[2017-04-01 13:40] LABS: BASOPHILS 0 % (0-2); EOSINOPHILS 0.1 % (0-7); HEMATOCRIT 37.2 % (36.0-48.0); HEMOGLOBIN 11.5 g/dL (12-16); IMMATURE GRANULOCYTES 0.4 % (0-5); LYMPHOCYTES 7.5 % (15-50); MCH 25.6 pg (26.0-34.0); MCHC 30.9 g/dL (31.0-37.0); MCV 82.9 fL (80.0-100.0); MEAN PLATELET VOLUME 10.4 fL (7.4-10.4); MONOCYTES 9.3 % (2-11); NEUTROPHILS 82.7 % (40-80); PLATELET COUNT 130 10x3/uL (130-400); RBC 4.49 10x6/uL (4.00-5.40); RDW 16.6 % (11.5-14.5); WBC 13.1 10x3/uL (4.8-10.8)
[2017-04-01 13:53] LABS: INR 3.18 (0.85-1.17); PROTIME 31.8 SECONDS (11.6-15.0)
[2017-04-01 14:20] LABS: ANION GAP 12.9 mmol/L (8-16); CALCIUM 10.4 mg/dL (8.5-10.1); CREATININE - SERUM 6.7 mg/dL (0.6-1.3); POTASSIUM - SERUM 3.9 mmol/L (3.5-5.1)
[2017-04-01 15:20] VITALS: BP 120/72
[2017-04-01 21:16] VITALS: BP 170/76
[2017-04-02 00:23] VITALS: BP 143/65
[2017-04-02 05:05] LABS: BASOPHILS 0 % (0-2); EOSINOPHILS 0 % (0-7); HEMATOCRIT 38.4 % (36.0-48.0); HEMOGLOBIN 12.1 g/dL (12-16); IMMATURE GRANULOCYTES 0.5 % (0-5); LYMPHOCYTES 4.8 % (15-50); MCH 25.9 pg (26.0-34.0); MCHC 31.5 g/dL (31.0-37.0); MCV 82.2 fL (80.0-100.0); MONOCYTES 7.4 % (2-11); NEUTROPHILS 87.3 % (40-80); PLATELET COUNT 116 10x3/uL (130-400); RBC 4.67 10x6/uL (4.00-5.40); RDW 16.6 % (11.5-14.5); WBC 16.2 10x3/uL (4.8-10.8)
[2017-04-02 05:21] VITALS: BP 156/63
[2017-04-02 05:25] LABS: ANION GAP 14.5 mmol/L (8-16); CALCIUM 10.6 mg/dL (8.5-10.1); CARBON DIOXIDE 28.8 mmol/L (21.0-32.0); CREATININE - SERUM 7.6 mg/dL (0.6-1.3); POTASSIUM - SERUM 4.3 mmol/L (3.5-5.1)
[2017-04-02 08:30] VITALS: BP 134/84
[2017-04-02] MEDS ORDERED: RENVELA800 MG PO (09:30)
[2017-04-02 10:46] LABS: INR 3.23 (0.85-1.17); PROTIME 32.2 SECONDS (11.6-15.0)
[2017-04-02 11:47] VITALS: BP 137/84
[2017-04-02 18:32] VITALS: Ht 160 cm; Wt 113.6 kg
[2017-04-02 20:00] VITALS: BP 145/88
[2017-04-03] VITALS: BP 140/54
[2017-04-03 06:03] LABS: BASOPHILS 0.1 % (0-2); EOSINOPHILS 0.1 % (0-7); HEMATOCRIT 38.1 % (36.0-48.0); HEMOGLOBIN 11.9 g/dL (12-16); IMMATURE GRANULOCYTES 0.3 % (0-5); LYMPHOCYTES 4.2 % (15-50); MCH 25.6 pg (26.0-34.0); MCHC 31.2 g/dL (31.0-37.0); MCV 81.9 fL (80.0-100.0); MEAN PLATELET VOLUME 10.5 fL (7.4-10.4); MONOCYTES 6.4 % (2-11); NEUTROPHILS 88.9 % (40-80); PLATELET COUNT 148 10x3/uL (130-400); RBC 4.65 10x6/uL (4.00-5.40); RDW 16.7 % (11.5-14.5); WBC 15.1 10x3/uL (4.8-10.8)
[2017-04-03 06:30] LABS: ANION GAP 15.2 mmol/L (8-16); CALCIUM 9.7 mg/dL (8.5-10.1); CARBON DIOXIDE 26.9 mmol/L (21.0-32.0); CREATININE - SERUM 8.7 mg/dL (0.6-1.3); PHOSPHOROUS 4.2 mg/dL (2.5-4.9); POTASSIUM - SERUM 4.1 mmol/L (3.5-5.1)
[2017-04-03 07:54] VITALS: BP 133/54
[2017-04-03 12:46] VITALS: BP 126/54
== END 2017-04-03 19:04 | disposition home or self-care (01) ==
LOC: D.M2 12:32 → OBSVTIME 12:33 → D.M2 04-03 19:04
PROVIDERS: Internal Medicine Nephrology; Surgery
DX: T82.868A Thrombosis due to vascular prosthetic devices, implants and grafts, initial encounter (principal); Y83.8 Other surgical procedures as the cause of abnormal reaction of the patient, or of later complication, without mention of misadventure at the time of the procedure; E66.01 Morbid (severe) obesity due to excess calories; Z68.39 Body mass index [BMI] 39.0-39.9, adult; F03.90 Unspecified dementia, unspecified severity, without behavioral disturbance, psychotic disturbance, mood disturbance, and anxiety; D63.1 Anemia in chronic kidney disease; E83.39 Other disorders of phosphorus metabolism; I48.91 Unspecified atrial fibrillation; E11.22 Type 2 diabetes mellitus with diabetic chronic kidney disease; I12.0 Hypertensive chronic kidney disease with stage 5 chronic kidney disease or end stage renal disease; N18.6 End stage renal disease; Z99.2 Dependence on renal dialysis

== ENCOUNTER 2017-05-24 06:40 | Day surgery (SDC) | payer MEDICARE ==
--- NOTE | ~2017-05-24 | OP ---
PATIENT NAME: TAWANA MARLOW MEDICAL RECORD: [id number] :37 LOCATION:D.OPS ADMISSION DATE: SURGEON: DOM SHEARER MD DATE OF OPERATION: 05/24/2017 REFERRING PHYSICIAN: Dr. Hays of [place] and Dr. Panda here in [place]. DIAGNOSIS: Thrombosed HeRO graft, left upper extremity with brachial artery embolus causing occlusion of that vessel with thrombosis extending up into the HeRO graft. OPERATION PERFORMED: Open thrombectomy of HeRO AV graft and repeat fistulogram and left brachial arteriogram. SURGEON: Dom Shearer MD ANESTHESIA: General per WINDING INSPECTOR. PREOPERATIVE NOTE: Ms. Marlow is an 82-year-old -Kazakh female who has a left upper extremity HeRO graft, which has thrombosed on the same day after an extensive percutaneous procedure later the same afternoon and now she has returned to the operating room for an open thrombectomy. DESCRIPTION OF PROCEDURE: With the patient under general anesthesia, she was reprepped and redraped and an incision placed across the antecubital space, exposing the remnant of the prior brachial systolic fistula, which had been converted to the HeRO graft. Adequate exposure proximally and distally was obtained. A clamp was placed across it near the arterial anastomosis and a longitudinal incision was made and the thrombus from within the body of the graft and the outflow device and the JA segment was then removed with a Khadijah embolectomy catheter under fluoroscopy. A repeat fistulogram was done imaging the graft and the outflow device and there was no thrombus left within it or any residual stenoses. The artery was controlled proximally and distally with Silastic loops and the clamp then removed from the graft. Thrombus from within the arterial anastomosis and from within the brachial artery was then removed successfully with a Khadijah embolectomy catheter. The thrombus, which was removed was quite organized and appears to have been the one seen earlier in the day on repeated angiograms clinging to the brachial artery at the arterial anastomosis. Good backbleeding was obtained after that plug was removed. The catheter was inserted and a selective brachial artery arteriogram performed, which then revealed no evidence of any residual stenosis, clots, occlusions, or emboli in the brachial artery down to its bifurcation or in the brachial or radial arteries. The patient had been systemically heparinized for this with 3000 units of heparin and the graft and artery flushed with dilute heparinized saline. The arteriotomy was closed with running Prolene suture and when complete, the suture line was hemostatic. The occluding loops and clamps were released and excellent flow was restored in the fistula with persistence of good arterial flow in the brachial artery. The wound was closed with interrupted Vicryl and running intracuticular Monocryl sutures and sealed and closed further with Dermabond glue and dressed with Maxorb Ag, Tegaderm, and Cavilon skin prep and the patient with satisfactory functioning fistula was awakened and taken to the recovery room. There was minimal blood loss, approximately 50 mL during the procedure, none was OPERATIVE REPORT [id number] TAWANA MARLOW. All sponges, instruments, and needles were accounted for. No drain was used and no surgical specimen was submitted for histopathology. The patient's 3000 unit bolus heparin was not reversed. TRANSINT:[id number] Voice Confirmation ID: [id number] DOCUMENT ID: [id number] DOM SHEARER MD at 1126 CC: [id number] DICTATION DATE: 06/03/17 1345 WOODWORK TEACHER: 06/03/17 1403 [facility] 05/27/17 [facility] [address] [place] [address]
--- NOTE | ~2017-05-24 | OP ---
PATIENT NAME: TAWANA PARRA MEDICAL RECORD: [id number] :37 LOCATION:[facility] ADMISSION DATE: SURGEON: DOM SHEARER MD DATE OF OPERATION: 05/24/2017 PREOPERATIVE DIAGNOSES: Thrombosed HeRO AV graft, which was implanted in November 2016. Also, a dislodged or displaced tunneled dialysis catheter in the right femoral vein inserted in March of 2017. POSTOPERATIVE DIAGNOSIS: Thrombosed HeRO AV graft, which was implanted in November 2016. Also, a dislodged or displaced tunneled dialysis catheter in the right femoral vein inserted in March of 2017. OPERATION PERFORMED: Fistulogram and AngioJet mechanical thrombolysis and selective catheterization and left brachial artery arteriogram with balloon angioplasty of the body of the PTFE AV graft and arterial anastomosis and attempted snare removal of persistent thrombus in the brachial artery and installation of thrombolytic. SURGEON: Dom Shearer MD ANESTHESIA: General with LMA per LEAD MASON TENDER. PREOPERATIVE NOTE: Ms. Parra is an 82-year-old -Argent[place] female with a clotted HeRO graft. This is a graft with the PTFE attached to a segment of remaining brachiocephalic fistula in the left upper extremity. Also, the patient has a tunneled hemodialysis catheter in the right femoral area, which needs to remove as it is partially displaced. DESCRIPTION OF PROCEDURE: Under anesthesia in supine position, the patient was prepped and draped in a sterile manner. The patient's fistula was accessed percutaneously and over a Glidewire thrombus within the venous outflow device and the body of the PTFE graft was lysed with the AngioJet and the patient was systemically heparinized. Contrast injection revealed some persistent thrombus or narrowing in the body of the graft and this was dilated with a 6 mm angioplasty balloon with a good result. The graft was accessed for second time in retrograde direction towards the arterial anastomosis. This was crossed with a Glidewire and the AngioJet used to remove thrombus from the juxta-anastomotic segment and a 4-Thai Khadijah embolectomy catheter used to remove the arterial plug. Retrograde injection of contrast demonstrated persistent thrombus in the arterial anastomosis. I passed a Bruin catheter over the Glidewire up into the proximal brachial artery and performed a brachial artery arteriogram, which demonstrated what appears to be an organized thrombus in the brachial artery attached to the arterial anastomosis to the fistula. There was flow into the radial and ulnar arteries without evidence of distal embolization. I attempted to remove the clot with a Khadijah catheter and even with snare with only partial results and I infused 2 cc of TPA slowly and repeat contrast injection revealed improvement, though there was still some persistent filling defect in the arterial anastomosis. This was dilated with a 6 mm angioplasty balloon with improvement. Subsequently, the hardware was removed and hemostasis obtained with direct pressure and partial heparin reversed and by partially reversing the heparin, sutures of 4-0 Prolene were placed and dressings of Ultrafoam, Tegaderm, and Cavilon skin prep were applied. The patient's right femoral catheter was freed and removed by blunt dissection. OPERATIVE REPORT [id number] TAWANA PARRA Hemostasis was obtained with direct pressure and the patient was subsequently taken to the recovery room. Blood loss was estimated at about 25 cc at that time. The patient had been given 5000 units of heparin and 2 mg of TPA in the operating room and this was partially reversed with 30 mg of protamine. Note, just as the patient had done last March, when she reached the recovery room, the HeRO, which had been working very well thrombosed completely with no Doppler flow signal while she had persistent bleeding from the right groin old catheter tract and this required additional pressure and pressure dressings. At that point, I decided the patient would have to be returned to the operating room for an open procedure. TRANSINT:[id number] Voice Confirmation ID: [id number] DOCUMENT ID: [id number] DOM SHEARER MD at 1126 CC: [id number] DICTATION DATE: 06/03/17 1331 ACCOUNT REVIEW SPECIALIST: 06/03/17 1353 [facility] 05/27/[address] [address]
[~2017-05-24 06:40] MED LIST changes: +BAYER CHEWABLE81 MG PO; +COUMADIN5 MG PO; +SENSIPAR30 MG PO; +SYNTHROID25 MCG PO
[2017-05-24] MEDS ORDERED: COUMADIN3 MG PO (07:18)
[2017-05-24 07:24] LABS: BASOPHILS 0.3 % (0-2); EOSINOPHILS 5.2 % (0-7); IMMATURE GRANULOCYTES 0.3 % (0-5); LYMPHOCYTES 24.9 % (15-50); MCH 25.6 pg (26.0-34.0); MCHC 31.4 g/dL (31.0-37.0); MCV 81.6 fL (80.0-100.0); MEAN PLATELET VOLUME 8.6 fL (7.4-10.4); MONOCYTES 8.3 % (2-11); PLATELET COUNT 144 10x3/uL (130-400); RBC 4.29 10x6/uL (4.00-5.40); RDW 16.9 % (11.5-14.5); WBC 7.9 10x3/uL (4.8-10.8)
[2017-05-24 07:33] VITALS: BP 206/102
[2017-05-24 07:41] LABS: ANION GAP 13.7 mmol/L (8-16); CALCIUM 7.4 mg/dL (8.5-10.1); CARBON DIOXIDE 25.5 mmol/L (21.0-32.0); CREATININE - SERUM 9.2 mg/dL (0.6-1.3); INR 1.13 (0.85-1.17); POTASSIUM - SERUM 4.2 mmol/L (3.5-5.1); PROTIME 14.1 SECONDS (11.6-15.0)
[2017-05-24 07:42] LABS: APTT 36.6 SECONDS (22.8-39.4)
[2017-05-24 21:47] VITALS: BP 122/80
[2017-05-25 01:54] VITALS: BP 166/93
[2017-05-25 05:16] LABS: BASOPHILS 0.1 % (0-2); EOSINOPHILS 0.2 % (0-7); HEMATOCRIT 31.1 % (36.0-48.0); HEMOGLOBIN 9.6 g/dL (12-16); IMMATURE GRANULOCYTES 0.3 % (0-5); LYMPHOCYTES 12.3 % (15-50); MCH 24.9 pg (26.0-34.0); MCHC 30.9 g/dL (31.0-37.0); MCV 80.8 fL (80.0-100.0); MEAN PLATELET VOLUME 9.1 fL (7.4-10.4); NEUTROPHILS 80.1 % (40-80); PLATELET COUNT 120 10x3/uL (130-400); RBC 3.85 10x6/uL (4.00-5.40); RDW 17.2 % (11.5-14.5); WBC 8.9 10x3/uL (4.8-10.8)
[2017-05-25 05:37] LABS: ANION GAP 16.3 mmol/L (8-16); CARBON DIOXIDE 21.5 mmol/L (21.0-32.0); CREATININE - SERUM 9.7 mg/dL (0.6-1.3); POTASSIUM - SERUM 4.8 mmol/L (3.5-5.1)
[2017-05-25 05:53] VITALS: BP 148/73
[2017-05-25 05:56] LABS: CALCIUM 6.7 mg/dL (8.5-10.1)
[2017-05-25 08:11] VITALS: BP 156/90
[2017-05-25 15:24] VITALS: BP 141/76
[2017-05-25 19:00] VITALS: BP 165/119
[2017-05-26 04:52] VITALS: BP 134/65
[2017-05-26 08:19] VITALS: BP 132/71
[2017-05-26 11:32] VITALS: BP 130/70
[2017-05-26 20:53] VITALS: BP 135/84
[2017-05-27 02:35] VITALS: BP 155/79
[2017-05-27 05:34] LABS: BASOPHILS 0.2 % (0-2); EOSINOPHILS 7.2 % (0-7); HEMATOCRIT 25.8 % (36.0-48.0); HEMOGLOBIN 8.3 g/dL (12-16); IMMATURE GRANULOCYTES 0.4 % (0-5); LYMPHOCYTES 21.7 % (15-50); MCH 25.5 pg (26.0-34.0); MCHC 32.2 g/dL (31.0-37.0); MCV 79.4 fL (80.0-100.0); MEAN PLATELET VOLUME 9.7 fL (7.4-10.4); MONOCYTES 9.1 % (2-11); NEUTROPHILS 61.4 % (40-80); RBC 3.25 10x6/uL (4.00-5.40); RDW 16.7 % (11.5-14.5)
[2017-05-27 05:35] LABS: PLATELET COUNT 95 10x3/uL (130-400); WBC 5.3 10x3/uL (4.8-10.8)
[2017-05-27 05:47] LABS: ANION GAP 12.8 mmol/L (8-16); POTASSIUM - SERUM 3.8 mmol/L (3.5-5.1)
[2017-05-27 05:48] LABS: CALCIUM 6.7 mg/dL (8.5-10.1)
[2017-05-27 06:08] VITALS: BP 154/50
[2017-05-27 07:51] VITALS: BP 136/82
[2017-05-27 15:30] VITALS: BP 136/70
== END 2017-05-27 18:29 ==
LOC: D.OPS 06:40 → D.M2 20:28 → D.OPS 05-27 18:29
PROVIDERS: Internal Medicine Nephrology; Surgery
DX: I12.0 Hypertensive chronic kidney disease with stage 5 chronic kidney disease or end stage renal disease (principal); N18.6 End stage renal disease; Z99.2 Dependence on renal dialysis; M19.90 Unspecified osteoarthritis, unspecified site; T82.591A Other mechanical complication of surgically created arteriovenous shunt, initial encounter; Z68.41 Body mass index [BMI] 40.0-44.9, adult; Z01.812 Encounter for preprocedural laboratory examination

== ENCOUNTER 2017-05-27 19:29 | Emergency (ER) | payer MEDICARE | END 2017-05-28 00:50 | disposition other institution (70) | LOC: D.ER 19:29 | DX: I10 Essential (primary) hypertension (principal) ==

== ENCOUNTER 2017-06-24 11:52 | Inpatient (IN) | payer MEDICARE ==
[~2017-06-24] VITALS: Ht 160 cm; Wt 107.3 kg
--- NOTE | ~2017-06-24 | OP ---
PATIENT NAME: TAWANA MARLOW MEDICAL RECORD: [id number] :37 LOCATION:D. D.2126 ADMISSION DATE:06/24/17 SURGEON: DOM SHEARER MD DATE OF OPERATION: 06/24/2017 REFERRED BY: Emmanuel Panda MD PREOPERATIVE DIAGNOSES: End-stage renal disease, dependence on hemodialysis, and recurrent thrombosis of left upper extremity, HeRO AV graft. OPERATION PERFORMED: Left upper extremity AV graft angiogram with AngioJet mechanical thrombolysis and balloon angioplasty of 80% diameter stricture of mid body of PTFE graft and placement of a stent, a 6 cm x 7 mm diameter Fluency PTFE covered stent graft, and also selective catheterization of the brachial artery and selective left brachial arteriogram to rule out lesions which would be responsible for reducing flow and leading to recurrent failure of graft or embolization. PREOPERATIVE NOTE: Ms. Marlow is an 82-year-old -Marshallese female who has had several dialysis accesses. She is presently dialyzing with a left upper extremity HeRO graft. She is on Coumadin, only about 1 week ago, she had a thrombosis requiring a procedure at [facility]. Now on Tuesday with again a recurrent thrombosis and an INR of 1.3, she has returned to the hospital here in [place] and is brought to the operating room for an angiogram and hopefully sikh of dialysis access patency. DESCRIPTION OF PROCEDURE: Under general anesthesia with LMA per ELIGIBILITY CLERK, the patient is prepped and draped in sterile manner. Her HeRO graft was accessed twice with micropuncture technique in opposing directions using micropuncture technique and two 6-Tajik sheaths were placed. Later an 8-Tajik sheath was placed for insertion of the Fluency stent. The patient was given 5000 units of heparin systemically. The clot within the body of the PTFE graft and within the venous outflow device was lysed with a 90 cm long AngioJet catheter passed over 0.035 Glidewire and contrast injection demonstrated areas of stenosis within the body of the PTFE graft and nothing else. There was no kink or complication at the connector. The areas of stenosis were dilated with a 7 mm diameter Admiral angioplasty balloon and repeated contrast injections revealed some mild persistent stenoses which were repeatedly dilated. A Khadijah catheter was passed up through the arterial anastomosis to remove the arterial plug and at least pulsatile inflow was restored. Over a Glidewire, I passed a glide catheter across the arterial anastomosis and proximally in the brachial artery up to the axilla, about 10-12 cm above the arterial anastomosis. Contrast injection with digital subtraction technique demonstrated no obstruction to flow within the brachial artery above or below the arterial anastomosis and without any obstruction to flow due to embolus or other problems distally. Contrast injection now again demonstrated occlusion of the central portion of the body of the graft. This was subsequently stented with a 7 mm diameter x 6 cm long Fluency PTFE covered stent graft which was fully expanded with the angioplasty balloon and repeated contrast injections demonstrated good patency and flow in the graft. The sheaths were removed and hemostasis obtained with [id number] sutures of 3-0 PDS and periods of direct pressure. These sites were dressed with Ultrafoam and Tegaderm with Cavilon skin prep. The patient was awakened and taken to the recovery room. OPERATIVE REPORT [id number] TAWANA MARLOW PLAN: The patient may have dialysis this evening or in the morning as per nephrology's wish. She is to continue all her home medications and continue on Coumadin and we will ask nephrology to adjust her dosage, so we have a higher INR. I will plan to continue her overnight on heparin and discontinue that tomorrow. Also we will ask that the dialysis nurses avoid sticking directly through the stent for a period of 2 weeks and after that, I think they can go ahead and stick it. Blood loss during the procedure about 25 mL, none was replaced. All sponges, instruments, and needles were accounted for. No drain was used. No specimen was submitted for histopathology. TRANSINT:[id number] Voice Confirmation ID: [id number] DOCUMENT ID: [id number] DOM SHEARER MD at 0959 CC: EMMANUEL PANDA MD [id number] DICTATION DATE: 06/24/171902 BOARDER MACHINE: 06/24/171946 ADM IN [facility] [address] [place] [address]
[~2017-06-24 11:52] MED LIST changes: +COUMADIN3 MG PO
[2017-06-24 13:00] VITALS: BP 207/97; BMI 41.4
[2017-06-24 14:52] LABS: BASOPHILS 0.1 % (0-2); EOSINOPHILS 0.1 % (0-7); HEMATOCRIT 29.6 % (36.0-48.0); HEMOGLOBIN 9.3 g/dL (12-16); IMMATURE GRANULOCYTES 0.7 % (0-5); LYMPHOCYTES 10.1 % (15-50); MCH 25.1 pg (26.0-34.0); MCHC 31.4 g/dL (31.0-37.0); MCV 79.8 fL (80.0-100.0); MEAN PLATELET VOLUME 10.6 fL (7.4-10.4); MONOCYTES 9.6 % (2-11); NEUTROPHILS 79.4 % (40-80); RBC 3.71 10x6/uL (4.00-5.40); RDW 17.8 % (11.5-14.5)
[2017-06-24 14:58] LABS: APTT 42.2 SECONDS (22.8-39.4); INR 1.35 (0.85-1.17); PROTIME 16.2 SECONDS (11.6-15.0)
[2017-06-24 15:00] LABS: ALBUMIN 2.7 g/dL (3.4-5.0); ANION GAP 16.4 mmol/L (8-16); BILIRUBIN - TOTAL 0.62 mg/dL (0.2-1.3); CALCIUM 8.8 mg/dL (8.5-10.1); CARBON DIOXIDE 24.4 mmol/L (21.0-32.0); CREATININE - SERUM 9.4 mg/dL (0.6-1.3); POTASSIUM - SERUM 4.8 mmol/L (3.5-5.1); PROTEIN - SERUM 6.3 g/dL (6.4-8.2)
[2017-06-24 15:01] LABS: PLATELET COUNT 166 10x3/uL (130-400)
[2017-06-24 15:09] VITALS: BP 206/97
[2017-06-24 19:00] VITALS: BP 96/46
[2017-06-25 04:00] VITALS: BP 91/60
[2017-06-25 06:36] LABS: INR 1.48 (0.85-1.17); PROTIME 17.4 SECONDS (11.6-15.0)
[2017-06-25 06:40] LABS: HEMOGLOBIN 7.9 g/dL (12-16); MCH 24.7 pg (26.0-34.0); MCHC 30.4 g/dL (31.0-37.0); MCV 81.3 fL (80.0-100.0); MEAN PLATELET VOLUME 10.2 fL (7.4-10.4); RBC 3.2 10x6/uL (4.00-5.40); RDW 18.2 % (11.5-14.5); WBC 24.4 10x3/uL (4.8-10.8)
[2017-06-25 06:41] LABS: APTT 29.8 SECONDS (22.8-39.4)
[2017-06-25 08:10] VITALS: BP 112/53
[2017-06-25 09:27] VITALS: Ht 160 cm; Wt 107.3 kg
[2017-06-25 15:32] VITALS: BP 97/46
[2017-06-25 20:30] VITALS: BP 105/64
[2017-06-26 00:30] VITALS: BP 113/66
[2017-06-26 04:30] VITALS: BP 104/48
[2017-06-26 04:51] LABS: HEMATOCRIT 30.3 % (36.0-48.0); HEMOGLOBIN 9.6 g/dL (12-16); MCH 25.3 pg (26.0-34.0); MCHC 31.7 g/dL (31.0-37.0); MCV 79.7 fL (80.0-100.0); MEAN PLATELET VOLUME 9.9 fL (7.4-10.4); RBC 3.8 10x6/uL (4.00-5.40); RDW 17.3 % (11.5-14.5); WBC 20.5 10x3/uL (4.8-10.8)
[2017-06-26 08:22] VITALS: BP 120/64
[2017-06-26 10:55] LABS: ALBUMIN 2.5 g/dL (3.4-5.0); BILIRUBIN - TOTAL 0.4 mg/dL (0.2-1.3); CALCIUM 8.7 mg/dL (8.5-10.1); CREATININE - SERUM 7.3 mg/dL (0.6-1.3); PHOSPHOROUS 4.2 mg/dL (2.5-4.9); PROTEIN - SERUM 5.5 g/dL (6.4-8.2)
[2017-06-26 10:57] LABS: ANION GAP 15.8 mmol/L (8-16); POTASSIUM - SERUM 3.8 mmol/L (3.5-5.1)
[2017-06-26 11:55] VITALS: BP 118/76
[2017-06-26 15:42] VITALS: BP 124/69
[2017-06-26 21:53] VITALS: BP 109/61
[2017-06-27 02:40] VITALS: BP 119/64
[2017-06-27 05:30] LABS: BASOPHILS 0.1 % (0-2); EOSINOPHILS 1.2 % (0-7); HEMATOCRIT 29.2 % (36.0-48.0); HEMOGLOBIN 9.2 g/dL (12-16); IMMATURE GRANULOCYTES 0.6 % (0-5); LYMPHOCYTES 11.6 % (15-50); MCH 25.1 pg (26.0-34.0); MCHC 31.5 g/dL (31.0-37.0); MCV 79.8 fL (80.0-100.0); MONOCYTES 5.4 % (2-11); NEUTROPHILS 81.1 % (40-80); PLATELET COUNT 182 10x3/uL (130-400); RBC 3.66 10x6/uL (4.00-5.40); RDW 17.1 % (11.5-14.5); WBC 17.3 10x3/uL (4.8-10.8)
[2017-06-27 05:47] LABS: ALBUMIN 2.4 g/dL (3.4-5.0); ANION GAP 16.3 mmol/L (8-16); BILIRUBIN - TOTAL 0.4 mg/dL (0.2-1.3); CALCIUM 8.3 mg/dL (8.5-10.1); CARBON DIOXIDE 25.5 mmol/L (21.0-32.0); POTASSIUM - SERUM 3.8 mmol/L (3.5-5.1); PROTEIN - SERUM 5.7 g/dL (6.4-8.2); VANCOMYCIN - RANDOM 4.2 ug/mL (10.0-20.0)
[2017-06-27 06:44] VITALS: BP 130/68
[2017-06-27] MEDS ORDERED: XARELTO15 MG PO (08:31)
[2017-06-27 10:17] VITALS: BP 93/66
[2017-06-27 18:36] VITALS: BP 129/75
[2017-06-28 15:24] LABS: SPE - A/G RATIO 1.1 (0.7-1.7); SPE - ALBUMIN 2.7 g/dL (2.9-4.4); SPE - ALPHA-1 GLOBULIN 0.4 g/dL (0.0-0.4); SPE - ALPHA-2 GLOBULIN 0.7 g/dL (0.4-1.0); SPE - BETA GLOBULIN 0.8 g/dL (0.7-1.3); SPE - GAMMA GLOBULIN 0.6 g/dL (0.4-1.8); SPE - M-SPIKE 0.3 g/dL (Not Observed); SPE - TOTAL PROTEIN 5.2 g/dL (6.0-8.5)
== END 2017-06-27 18:45 | DRG 252 ==
LOC: D.M2 11:52 → OBSVTIME 11:52 → D.M2 12:05 → OBSVTIME 12:05 → D.M2 06-27 18:45
PROVIDERS: Internal Medicine Nephrology; Surgery
PROC: 03783DZ Dilation of Left Brachial Artery with Intraluminal Device, Percutaneous Approach (ICD-10-PCS; principal; 2017-06-24 14:30)
PROC: 03C83ZZ Extirpation of Matter from Left Brachial Artery, Percutaneous Approach (ICD-10-PCS; 2017-06-24 14:30)
PROC: B31J1ZZ Fluoroscopy of Left Upper Extremity Arteries using Low Osmolar Contrast (ICD-10-PCS; 2017-06-24 14:30)
PROC: 5A1D70Z Performance of Urinary Filtration, Intermittent, Less than 6 Hours Per Day (ICD-10-PCS; 2017-06-25)
DX: T82.868A Thrombosis due to vascular prosthetic devices, implants and grafts, initial encounter (principal); N18.6 End stage renal disease; I12.0 Hypertensive chronic kidney disease with stage 5 chronic kidney disease or end stage renal disease; Y83.8 Other surgical procedures as the cause of abnormal reaction of the patient, or of later complication, without mention of misadventure at the time of the procedure; F03.90 Unspecified dementia, unspecified severity, without behavioral disturbance, psychotic disturbance, mood disturbance, and anxiety; D72.829 Elevated white blood cell count, unspecified; D64.9 Anemia, unspecified; R00.0 Tachycardia, unspecified; E11.22 Type 2 diabetes mellitus with diabetic chronic kidney disease; Z99.2 Dependence on renal dialysis

== ENCOUNTER 2017-09-30 09:41 | Inpatient (IN) | payer MEDICARE ==
[~2017-09-30] VITALS: Ht 160 cm; Wt 80.2 kg
--- NOTE | ~2017-09-30 | OP ---
PATIENT NAME: TAWANA MARLOW MEDICAL RECORD: [id number] :39 LOCATION:D.M2 D.2140 ADMISSION DATE:09/30/17 SURGEON: DOM SHEARER MD DATE OF OPERATION: 10/01/2017 REFERRING PHYSICIAN: Rafa Lopez. 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 OPERATION PERFORMED: Angiogram of left upper extremity dialysis circuit with AngioJet mechanical thrombolysis and balloon angioplasty of juxta-anastomotic segmental stenosis and selective catheterization and arteriogram of the left brachial artery. SURGEON: Dom Shearer MD ANESTHESIA: Local MAC with VESSEL TRAFFIC OFFICER, local was 1% lidocaine without epinephrine. PREOPERATIVE NOTE: Ms. Marlow is an 82-year-old -[place] Citizen female from [place]. She has end-stage renal disease and has been dialyzing for some time now with HeRO AV graft on the left. She has had several episodes of thrombosis and is on chronic oral Xarelto therapy. She dialyzed last successfully on Thursday 09/28, but was found to be thrombosed when she presented for dialysis yesterday morning, Tuesday, 09/30. Operating room schedule did not allow getting the patient into the operating room yesterday in a timely manner, so she is brought to the operating room at this time for hopefully fistulogram with successful thrombectomy of the HeRO graft. It is not in the patient's best interest to temporize with a catheter insertion in either femoral vein. 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 Ultrasound done earlier of the right internal jugular vein reveals no vessel; therefore access. I have discussed the case preoperatively with the computer programmer chief, Dr. Hanna Jones and he agrees that in this case, it is clearly in the patient's best interest to proceed with a Tuesday morning fistulogram and declot procedure as the procedure of choice. Only if that is unsuccessful, will I plan to go ahead and implant a catheter. DESCRIPTION OF PROCEDURE: Under MAC and monitoring per VESSEL TRAFFIC OFFICER, the patient was placed in supine position and the left arm prepped and draped in sterile manner. Local anesthetic when needed was 1% lidocaine. I used micropuncture technique and inserted two 6-Kyrgyz catheters in opposing directions closer to the arterial end of the graft, which is an anastomosis of PTFE to the brachial artery or just above the antecubital level. The patient was systemically heparinized with 5000 units and a Glidewire passed through the outflow tract into the right atrium. Over that, I used a 90 cm AngioJet catheter to lyse thrombus within the body of the graft and the outflow device. Subsequent contrast injection revealed satisfactory lumen. A guidewire was then passed from the opposing 6-Kyrgyz sheath and this crossed the arterial anastomosis into the distal brachial artery. The AngioJet catheter was used then to lyse thrombus within the arterial anastomosis and JA segment. Contrast injection into the distal brachial artery demonstrated good flow into the forearm without OPERATIVE REPORT [id number] TAWANA MARLOW any evidence of embolization or arterial occlusion. The glide catheter was redirected over a glide catheter up into the proximal brachial artery and an additional arteriogram was performed, which revealed no evidence of stenosis or lesions of the brachial artery, which was quite large and mildly tortuous. There did appear to be a persistent stenosis, possibly due to adherent thrombus in the JA segment only about a centimeter proximal to the AA itself. I treated this with a balloon angioplasty with a 6 mm diameter balloon by 20 mm. Subsequent repeat contrast injections revealed total resolution of that stenosis and good flow restored in the AV graft. NOTE: I did use 8 mm diameter balloon x 40 mm to macerate thrombus within the proximal PTFE segment. The 6-Kyrgyz sheaths were removed and hemostasis obtained with a [id number] 4-0 Prolene sutures and a period of gentle digital compression. The sites were then dressed with Ultrafoam, Tegaderm, and Cavilon skin prep. She was then returned to her room. It was not necessary to reverse her heparinization. PLAN: The patient should be able to have dialysis today via her graft. I will ask that the nurses keep her n.p.o. until it is demonstrated that her graft is functioning and dialysis is successful today. This will be in case she has to be returned to the operating room later today for catheter or something else. I am putting her back on her Xarelto, first dose now and I am adding 81 mg enteric-coated aspirin 1 now and 1 daily. Blood loss during the operation was about 10 cc and was unreplaced. All sponges, instruments, and needles were accounted for. No drain was used. The patient should be able to go home by Tuesday as I imagine if she is able to dialyze successfully today and perhaps tomorrow or Tuesday morning. She will continue on her same medications including her Xarelto, but also is to add aspirin 81 mg enteric coated once daily as well. I will not need to see her back in my office for any routine followup visits, but will be happy to see her in the office or in the hospital or at [facility] if there is any problem. TRANSINT:[id number] Voice Confirmation ID: [id number] DOCUMENT ID: [id number] DOM SHEARER MD at 1123 CC: RAFA LOPEZ MD [id number] DICTATION DATE: 10/01/17 1033 BINGO MANAGER: 10/01/17 1102 DIS IN 10/02/17 [facility] [address] [place] [address]
[~2017-09-30 09:41] MED LIST changes: +XARELTO15 MG PO
[2017-09-30 10:54] VITALS: BP 146/78
[2017-09-30 11:51] LABS: BASOPHILS 0.1 % (0-2); EOSINOPHILS 0.1 % (0-7); HEMATOCRIT 42.5 % (36.0-48.0); HEMOGLOBIN 13.3 g/dL (12-16); IMMATURE GRANULOCYTES 0.4 % (0-5); LYMPHOCYTES 3.4 % (15-50); MCH 25.7 pg (26.0-34.0); MCHC 31.3 g/dL (31.0-37.0); MEAN PLATELET VOLUME 9.1 fL (7.4-10.4); MONOCYTES 6.9 % (2-11); NEUTROPHILS 89.1 % (40-80); RBC 5.18 10x6/uL (4.00-5.40); WBC 14.8 10x3/uL (4.8-10.8)
[2017-09-30 11:59] LABS: INR 1.35 (0.85-1.17); PLATELET COUNT 142 10x3/uL (130-400); PROTIME 16.2 SECONDS (11.6-15.0)
[2017-09-30 12:06] LABS: ANION GAP 18.5 mmol/L (8-16); CALCIUM 9.1 mg/dL (8.5-10.1); CARBON DIOXIDE 23.7 mmol/L (21.0-32.0); CREATININE - SERUM 8.1 mg/dL (0.6-1.3); POTASSIUM - SERUM 4.2 mmol/L (3.5-5.1)
[2017-09-30 17:09] VITALS: BP 146/78; BMI 31.0
[2017-09-30 21:24] VITALS: BP 85/32
[2017-10-01 01:30] VITALS: BP 103/40
[2017-10-01 06:28] VITALS: BP 98/36
[2017-10-01 09:57] VITALS: Ht 160 cm; Wt 80.2 kg
[2017-10-01 13:48] LABS: ANION GAP 17.1 mmol/L (8-16); CALCIUM 8.8 mg/dL (8.5-10.1); CARBON DIOXIDE 24.1 mmol/L (21.0-32.0)
[2017-10-01 13:49] LABS: CREATININE - SERUM 5.8 mg/dL (0.6-1.3); POTASSIUM - SERUM 3.2 mmol/L (3.5-5.1)
[2017-10-01 16:17] VITALS: BP 106/48
[2017-10-01 23:07] VITALS: BP 115/47
[2017-10-02 01:53] VITALS: BP 126/49
[2017-10-02 06:25] VITALS: BP 182/99
[2017-10-02 09:01] VITALS: BP 122/32
[2017-10-02] MEDS ORDERED: ASPIRIN EC81 M1 PO (09:49)
[2017-10-02 10:02] LABS: BASOPHILS 0.2 % (0-2); EOSINOPHILS 1.4 % (0-7); HEMATOCRIT 38.1 % (36.0-48.0); HEMOGLOBIN 12.1 g/dL (12-16); IMMATURE GRANULOCYTES 0.3 % (0-5); LYMPHOCYTES 17.1 % (15-50); MCH 25.4 pg (26.0-34.0); MCHC 31.8 g/dL (31.0-37.0); MONOCYTES 14.2 % (2-11); NEUTROPHILS 66.8 % (40-80); PLATELET COUNT 131 10x3/uL (130-400); RBC 4.76 10x6/uL (4.00-5.40); RDW 16.8 % (11.5-14.5); WBC 11.6 10x3/uL (4.8-10.8)
[2017-10-02 10:16] LABS: ALBUMIN 2.7 g/dL (3.4-5.0); ANION GAP 19.1 mmol/L (8-16); BILIRUBIN - TOTAL 0.38 mg/dL (0.2-1.3); CALCIUM 8.9 mg/dL (8.5-10.1); CARBON DIOXIDE 22.2 mmol/L (21.0-32.0); CREATININE - SERUM 8.1 mg/dL (0.6-1.3); POTASSIUM - SERUM 4.3 mmol/L (3.5-5.1); PROTEIN - SERUM 5.8 g/dL (6.4-8.2)
[2017-10-04 16:17] LABS: HEPATITIS C ANTIBODY <0.1 (0.0-0.9)
[2017-10-05 05:15] LABS: HEPATITIS BE ANTIGEN Negative (Negative)
== END 2017-10-02 14:09 | DRG 252 ==
LOC: D.M2 09:41 → D.SDCHOLD 10:07 → D.M2 10:13
PROVIDERS: Internal Medicine; Internal Medicine Nephrology; Surgery
PROC: 5A1D70Z Performance of Urinary Filtration, Intermittent, Less than 6 Hours Per Day (ICD-10-PCS; 2017-09-30)
PROC: B31J1ZZ Fluoroscopy of Left Upper Extremity Arteries using Low Osmolar Contrast (ICD-10-PCS; 2017-10-01)
PROC: 03C83ZZ Extirpation of Matter from Left Brachial Artery, Percutaneous Approach (ICD-10-PCS; principal; 2017-10-01 08:00)
PROC: 03783ZZ Dilation of Left Brachial Artery, Percutaneous Approach (ICD-10-PCS; 2017-10-01 08:00)
DX: T82.868A Thrombosis due to vascular prosthetic devices, implants and grafts, initial encounter (principal); N18.6 End stage renal disease; I12.0 Hypertensive chronic kidney disease with stage 5 chronic kidney disease or end stage renal disease; D68.9 Coagulation defect, unspecified; Y83.8 Other surgical procedures as the cause of abnormal reaction of the patient, or of later complication, without mention of misadventure at the time of the procedure; E11.22 Type 2 diabetes mellitus with diabetic chronic kidney disease; Z99.2 Dependence on renal dialysis

== ENCOUNTER 2018-12-20 15:14 | Inpatient (IN) | payer MEDICARE ==
[~2018-12-20] VITALS: Ht 160 cm; Wt 79.8 kg
[~2018-12-20 15:14] MED LIST changes: +ASPIRIN EC81 M1 PO
[2018-12-20 16:18] VITALS: BP 121/59; BMI 31.2
--- NOTE | 2018-12-20 16:34 | NUR ---
PATIENT IS HERE FROM [facility]. SHE WAS HAVING COMPLICATIONS WITH HER FISTULA. SHE HAS A FISTULA IN HER RIGHT ARM THAT WAS BLEEDING. SHE IS ALERT AND ORIENTED AND DENIES ANY NEEDS AT THIS TIME. SHE IS GETTING A CHEST XRAY RIGHT NOW.
[2018-12-20 16:51] LABS: BASOPHILS 0.1 % (0-2); EOSINOPHILS 2.6 % (0-7); HEMATOCRIT 33.2 % (36.0-48.0); HEMOGLOBIN 10.7 g/dL (12-16); IMMATURE GRANULOCYTES 0.3 % (0-5); LYMPHOCYTES 25.7 % (15-50); MCH 25.6 pg (26.0-34.0); MCHC 32.2 g/dL (31.0-37.0); MCV 79.4 fL (80.0-100.0); MEAN PLATELET VOLUME 9.7 fL (7.4-10.4); MONOCYTES 9.2 % (2-11); NEUTROPHILS 62.1 % (40-80); PLATELET COUNT 143 10x3/uL (130-400); RBC 4.18 10x6/uL (4.00-5.40); RDW 15.6 % (11.5-14.5); WBC 7.3 10x3/uL (4.8-10.8)
[2018-12-20 17:03] LABS: INR 1.12 (0.85-1.17); PROTIME 13.9 SECONDS (11.6-15.0)
[2018-12-20 17:08] LABS: ANION GAP 10.7 mmol/L (8-16); CARBON DIOXIDE 30.5 mmol/L (21.0-32.0); CREATININE - SERUM 4.4 mg/dL (0.6-1.3); POTASSIUM - SERUM 4.2 mmol/L (3.5-5.1)
[2018-12-20 17:31] VITALS: BP 121/59
--- NOTE | 2018-12-20 18:56 | NUR ---
DIALYSIS COORDINATOR: [facility] M[facility] @ 5:25AM. BMM DC
--- NOTE | 2018-12-20 19:47 | NUR ---
ATTEMPTED IV, AND WAS NOT ABLE TO. JOSSE , ANOTHER NURSE ALSO ATTEMPTED. CALLED ICU TO SEE IF THEY COULD SEND A NURSE OVER TO TRY.
[2018-12-20 20:00] VITALS: BP 123/39
--- NOTE | 2018-12-20 20:21 | NUR ---
REC'D. IN BED HOB 40 DEGREES SITTING POSITION ROOM AIR.OLD BROWNISH RED DRY BLOODY DRAINAGE NOTED UNDER OPSITE NO SWELLING OR FRESH DRAINAGE NOTED HAS NOT BEEN ABLE TO GET IV ACCESS STATES SO TIRED OF BEING STUCK. [facility] AND FOLLOW CURRENT PLAN OF CARE.
[2018-12-21] VITALS: BP 122/33
[2018-12-21 05:43] VITALS: BP 155/58
--- NOTE | 2018-12-21 08:00 | NUR ---
PATIENT RESTING QUIETLY TV IS ON. BED IS IN LOW POSITION AND CALL LIGHT IS IN REACH. IV TO THE RIGHT FOREARM IS SALINE LOCKED AT THIS TIME. LEFT ARM IS SWOLLED AND TENDER TOT HE TOUCH. ASSISTED PATIENT TO THE BATHROOM AND PLACED A NEW BRIEF.
[2018-12-21 09:16] VITALS: BP 134/56
[2018-12-21 13:55] VITALS: Ht 160 cm; Wt 79.8 kg
--- NOTE | 2018-12-21 15:50 | NUR ---
SCD'S REFUSED AT THIS TIME. PATIENT STATES THAT THEY HURT HIS LEGS
[2018-12-21 16:45] VITALS: BP 141/68
--- NOTE | 2018-12-21 19:31 | NUR ---
REPORT RECEIVED FROM DAY SHIFT, PT CARE ASSUMED. INTRODUCED SELF AND WROTE NAME ON BOARD. PT SITTING UP IN BED, AAOX4. DENIES ANY NEEDS AT THIS TIME. BED IN LOWEST POSITION, SR X2, CALL LIGHT WITHIN REACH. WILL CONTINUE TO MONITOR.
[2018-12-21 21:36] VITALS: BP 128/58
[2018-12-22] VITALS (8 sets, daily range): BP systolic 113–153; BP diastolic 35–65
--- NOTE | 2018-12-22 07:39 | NUR ---
PT PREOP'D TAKEN FOR SX VIA BED BY GENERAL PASSENGER AGENT.
--- NOTE | 2018-12-22 09:27 | NUR ---
USED ALCOHOL SWAP TO CLEAN THIGH BECAUSE OF VERY DRY SKIN
--- NOTE | 2018-12-22 11:11 | NUR ---
REMOVED LMA, PT TOLERATED WITHOUT ANY COUGHING OR TROUBLE BREATHING. RR NONLABORED WITH O2 MASK IN PLACE @6L. PULSE OX 99% WILL CTM.
--- NOTE | 2018-12-22 11:19 | NUR ---
SPOKE WITH WINNIE ROBERTSON FROM OR SHE STATES DR. SHEARER DID A OPEN REVISION LEFT UPPER ARM GRAFT AND DID A SUBCLAVICULAR BLOCK AND PT IS NOT IN ANY PAIN AND PT CAN MOVE HER FINGERS. PT IS RUNNING SINUS RHYTHM. O2 SAT 98% ON ROOM AIR.
--- NOTE | 2018-12-22 11:35 | NUR ---
PT RETURNED FROM SX VIA BED LAYING FLAT. ALERT AND ORIENTED WHEN AROUSED WITH SPEECH. VS STABLE. O2 SAT 92% ON ROOM AIR. LEFT AMR PROPPED ON PILLOWS GOOD BRUIRY AND THRILL. DRESSING ON UPPER AAARM HAS QUARTER AMOUNT OF BLOOD ON DRESSING AND BOTTOM PART OF ARM DRESSING HAS A DIME SIZED AMOUNT. PT HAS NO COMPLAINTS AT THIS TIME. WILL CONTINUE TO MONITOR. BED LOW. CL IN REACH.
[2018-12-22 12:19] LABS: BASOPHILS 0.1 % (0-2); HEMATOCRIT 33.4 % (36.0-48.0); HEMOGLOBIN 10.9 g/dL (12-16); IMMATURE GRANULOCYTES 0.3 % (0-5); LYMPHOCYTES 19.9 % (15-50); MCH 25.7 pg (26.0-34.0); MCHC 32.6 g/dL (31.0-37.0); MCV 78.8 fL (80.0-100.0); MEAN PLATELET VOLUME 10.1 fL (7.4-10.4); NEUTROPHILS 67.7 % (40-80); PLATELET COUNT 118 10x3/uL (130-400); RBC 4.24 10x6/uL (4.00-5.40); RDW 15.3 % (11.5-14.5); WBC 7.3 10x3/uL (4.8-10.8)
--- NOTE | 2018-12-22 12:21 | NUR ---
SPOKE WITH KAROLINA WHEAT AND SHE STATES THE DIALYSIS NURSES ARE AWARE THAT PT IS TO HAVE HD TOMORROW. I VERBLAIZED UNDERSTANDING.
[2018-12-22 12:25] LABS: ANION GAP 10.5 mmol/L (8-16); CALCIUM 8.8 mg/dL (8.5-10.1); CARBON DIOXIDE 29.7 mmol/L (21.0-32.0); POTASSIUM - SERUM 4.2 mmol/L (3.5-5.1)
--- NOTE | 2018-12-22 12:25 | NUR ---
SPOKE TO KAROLINA WHAET AND STATED THAT PT ALSO NEEDS TO GET VANVOMYCIN DURING DIALYSIS BUT THERE IS NONE ORDERED. SHE STATES SHE WILL PUT THE ORDER IN.
[2018-12-22 12:29] LABS: CREATININE - SERUM 5.7 mg/dL (0.6-1.3)
--- NOTE | 2018-12-22 15:25 | MORECARE ---
CASE MANAGEMENT DISCHARGE SUMMARY PATIENT: TAWANA MARLOW UNIT: [id number] ADM DATE: 12/20/18 AGE: 83 : 37 SEX: F ROOM/BED: D.2136 AUTHOR: SRAVAN STONE PHYSICIAN: REFERRING PHYSICIAN: DOM SHEARER MD DATE OF SERVICE: 12/22/18 Discharge Plan Patient Name: TAWANA MARLOW Facility: [facility]:[place] : 1935 Planned Disposition: Nursing Facility [facility] Anticipated Discharge Date: Discharge Date: Expected LOS: Initial Reviewer: [email or web address] Initial Review Date: 12/22/2018 Generated: 12/22/18 4:25 pm Patient Name: TAWANA MARLOW Page [phone] at 1525 All edits/amendments must be made on the electronic document DICTATION DATE: 12/22/18 1524 STRIKE WARFARE/MISSILE SYSTEMS OFFICER: BALAJI 12/22/18 1524 RPT#: [id number] [place] DATE: STATUS: ADM IN [facility] [address] [place] [address] END OF REPORT
--- NOTE | 2018-12-22 15:35 | MORECARE ---
CASE MANAGEMENT DISCHARGE SUMMARY PATIENT: TAWANA MARLOW UNIT: [id number] ADM DATE: 12/20/18 AGE: 83 : 37 SEX: F ROOM/BED: D.2136 AUTHOR: BERTHADOC PHYSICIAN: REFERRING PHYSICIAN: DOM SHEARER MD DATE OF SERVICE: 12/22/18 Discharge Plan Patient Name: TAWANA MARLOW Facility: [facility]:[place] : 1935 Planned Disposition: Nursing Facility [facility] Cert Anticipated Discharge Date: Discharge Date: Expected LOS: Initial Reviewer: [email or web address] Initial Review Date: 12/22/2018 Generated: 12/22/18 4:34 pm Comments DCP- Discharge Planning Updated by [email or web address]: Janice Nichols on 12/22/18 2:[address] Patient Name: TAWANA MARLOW Admission Status: Elective Accout number: [id number] Admission Date: 12-20-2018 : 1935 Admission Diagnosis:INFECT/INFLM REACT D/T OTH CARDI/VASC DEV/IMPLNT/GRFT, Attending: DOM SHEARER Current LOS: 2 Anticipated DC Date: Planned Disposition: Nursing Facility [facility] Cert Primary Insurance: MEDICARE A & B Discharge Planning Comments: CM met with patient to complete initial dc planning assessment. CM educated patient on the CM role and verbal consent given by patient to complete assessment. Patient lives at [facility] [place] [address] where she is a retirement resident. Patient plans to return there upon discharge. Patient has dialysis MWF @ [facility] @ 0525. The [facility] will need to provide transportation back to facility upon discharge. Patient denied known discharge needs at this time. CM will continue to follow and will assist as needed with dc plans/needs. Bull Riveter: Janice Nichols DCPIA - Discharge Planning Initial Assessment Updated by [email or web address]: Janice Nichols on 12/22/18 3:26 pm * Is the patient Alert and Oriented? Yes * How many steps to enter\exit or inside your home? * Preadmission Environment [employer] [facility] * Facility Name [place] [address] * ADLs Partial Dependent * Partial ADLs (Assistance needed) Ambulation Bathing Dressing Eating Medication Management Toileting Transfers * Equipment Wheelchair * List name and contact numbers for known caregivers / representatives who currently or will assist patient after discharge: SWATHI ESPINOZA - [phone] * Verbal permission to speak to the caregivers and representatives has been obtained from the patient. N/A * Community resources currently utilized None * Additional services required to return to the preadmission environment? No * Can the patient safely return to the preadmission environment? Yes * Has this patient been hospitalized within the prior 30 days at any hospital? No Last DP export: 12/22/18 2:25 p Patient Name: TAWANA MARLOW Page [phone] at 1535 All edits/amendments must be made on the electronic document DICTATION DATE: 12/22/181533 SERVER ADMINISTRATOR: BALAJI 12/22/181533 RPT#: [id number] DC DATE: STATUS: ADM IN [facility] [address] [place] [address] END OF REPORT
--- NOTE | 2018-12-22 19:27 | NUR ---
REPORT RECEIVED FROM DAY SHIFT, PT CARE ASSUMED. WROTE NAME ON BOARD, PT LYING IN BED WATCHING TV, AAOX4. DENIES PAIN OR ANY NEEDS AT THIS TIME. BED IN LOWEST POSITION, SR X2, CALL LIGHT WITHIN REACH. WILL CONTINUE TO MONITOR.
[2018-12-23] VITALS (7 sets, daily range): BP systolic 99–151; BP diastolic 43–69
--- NOTE | 2018-12-23 02:34 | NUR ---
PT LYING IN BED WITH EYES CLOSED, RR EVEN AND NONLABORED, NO S/S DISTRESS, EASILY AROUSES TO VOICE. DENIES ANY NEEDS AT THIS TIME. BED IN LOWEST POSITION, SR X2, CALL LIGHT WITHIN REACH. WILL CONTINUE TO MONITOR.
[2018-12-23 05:53] LABS: BASOPHILS 0.1 % (0-2); HEMATOCRIT 32.9 % (36.0-48.0); HEMOGLOBIN 10.6 g/dL (12-16); IMMATURE GRANULOCYTES 0.4 % (0-5); LYMPHOCYTES 21.6 % (15-50); MCH 25.6 pg (26.0-34.0); MCHC 32.2 g/dL (31.0-37.0); MCV 79.5 fL (80.0-100.0); MEAN PLATELET VOLUME 11.4 fL (7.4-10.4); MONOCYTES 9.4 % (2-11); NEUTROPHILS 65.5 % (40-80); RBC 4.14 10x6/uL (4.00-5.40); RDW 15.7 % (11.5-14.5); WBC 7.8 10x3/uL (4.8-10.8)
[2018-12-23 06:19] LABS: ANION GAP 12.4 mmol/L (8-16); CARBON DIOXIDE 27.4 mmol/L (21.0-32.0); CREATININE - SERUM 6.5 mg/dL (0.6-1.3); POTASSIUM - SERUM 4.8 mmol/L (3.5-5.1); VANCOMYCIN - RANDOM 19.4 ug/mL (10.0-20.0)
[2018-12-23 06:43] LABS: PLATELET COUNT 146 10x3/uL (130-400)
--- NOTE | 2018-12-23 07:00 | NUR ---
PATIENT SITTING UP TO CHAIR AT BEDSIDE. PATIENT STATES SHE IS READY TO GO HOME. PATIENT RESP EVEN AND UNLABORED. CALL LIGHT WITHIN REACH. INFORMED PATIENT SHE WILL RECIEVE DIALYSIS BEFORE SHE GOES HOME TODAY TO MAKE SURE HER NEW HEROGRAFT WORKS SO SHE DOESN'T HAVE A PROBLEM AT THE DIALYSIS CENTER NEXT WEEK. PATIENT VERBALIZED UNDERSTANDING. PATIENT WITH NO COMPLAINTS THIS AM. PLEASANT.
--- NOTE | 2018-12-23 11:30 | NUR ---
PATIENT CONTINUES TO SIT UP TO CHAIR AT BEDSIDE. DENIES NEEDS. NO DISTRESS. AWAITING LUNCH TRAY TO BE SERVED.
--- NOTE | 2018-12-23 13:00 | NUR ---
PATIENT LEFT UNIT VIA WHEELCHAIR FOR DIALYSIS. PATIENT IN NO DISTRESS UPON LEAVING UNIT.
--- NOTE | 2018-12-23 17:25 | NUR ---
CALLED DIALYSIS TO CHECK ON PATIENT, 20 MINUTES REMAINING ON TREATMENT.
--- NOTE | 2018-12-23 18:07 | NUR ---
PATIENT RETURNED TO UNIT VIA PERSONAL WHEELCHAIR. NO DISTRESS UPON RETURNING TO UNIT. PATIENT SITTING IN CHAIR AT BEDSIDE CONSUMING PM MEAL AT THIS TIME.
--- NOTE | 2018-12-23 19:32 | NUR ---
BEDSIDE REPORT RECEIVED FROM DAY SHIFT, PT CARE ASSUMED. WROTE NAME ON BOARD, PT SITTING UP IN WHEELCHAIR, AAOX4. DENIES ANY NEEDS AT THIS TIME. BED IN LOWEST POSITION, SR X2, CALL LIGHT WITHIN REACH. WILL CONTINUE TO MONITOR.
--- NOTE | 2018-12-23 23:27 | NUR ---
PT LYING IN BED WITH EYES CLOSED, RR EVEN AND NONLABORED, NO S/S OF DISTRESS, AROUSES EASILY TO VOICE. DENIES ANY NEEDS AT THIS TIME. BED IN LOWEST POSITION, SR X2, CALL LIGHT WITHIN REACH. WILL CONTINUE TO MONITOR.
[2018-12-24 01:25] VITALS: BP 115/55
[2018-12-24 05:20] VITALS: BP 109/47
[2018-12-24 05:51] LABS: BASOPHILS 0.3 % (0-2); EOSINOPHILS 3.9 % (0-7); HEMATOCRIT 32.7 % (36.0-48.0); HEMOGLOBIN 10.5 g/dL (12-16); IMMATURE GRANULOCYTES 0.4 % (0-5); LYMPHOCYTES 20.4 % (15-50); MCH 25.7 pg (26.0-34.0); MCHC 32.1 g/dL (31.0-37.0); MCV 80.1 fL (80.0-100.0); MONOCYTES 15.4 % (2-11); NEUTROPHILS 59.6 % (40-80); PLATELET COUNT 137 10x3/uL (130-400); RBC 4.08 10x6/uL (4.00-5.40); RDW 16.4 % (11.5-14.5); WBC 7.3 10x3/uL (4.8-10.8)
[2018-12-24 06:11] LABS: CALCIUM 8.2 mg/dL (8.5-10.1); CARBON DIOXIDE 28.1 mmol/L (21.0-32.0); CREATININE - SERUM 5.3 mg/dL (0.6-1.3)
[2018-12-24 06:13] LABS: ANION GAP 10.6 mmol/L (8-16); POTASSIUM - SERUM 4.7 mmol/L (3.5-5.1)
--- NOTE | 2018-12-24 07:44 | NUR ---
PATIENT SITTIN IN PERSONAL WHEELCAHI IN ROOM. TV IS ON. BED IS IN LOW POSITION AND CALL LIGHT IS IN REACH. IV TO THE RIGHT FOREARM IS SALINE LOCKED. REQUESTED BREAKFAST WHICH WILL BE HERE SHORTLY. UPDATED WHITE BOARD. POSSIBLE DISCHARGE TODAY PER PATIENT. DRESSING ON LEFT ARM IS CLEAN DRY AND INTACT.
[2018-12-24] MEDS ORDERED: VIBRAMYCIN 100100 MG PO (10:47)
[2018-12-24] MEDS ORDERED: ACETAMINOPHEN325 MG PO (10:47)
[2018-12-24] MEDS ORDERED: ULTRAM50 MG PO (10:48)
--- NOTE | 2018-12-24 14:08 | NUR ---
REPORT CALLED TO GARRETT AT THE [facility]
--- NOTE | 2018-12-24 14:24 | NUR ---
SPOKE WITH KAROLINA FERNANDES APN, WITH RENAL RE ORDERS FOR PT TO RECEIVE VANCOMYCIN WITH DIALYSIS. SHE IS FOLLOWED BY ANOTHER DEPUTY CONTROLLER IN [place]. KAROLINA CONTACTED DR SHEARER. HE ADVISED THAT HE WILL HAVE HIS NURSE CONTACT PATIENT'S [place] [facility] TO ARRANGE FOR PT TO RECEIVE VANCOMYCIN.
--- NOTE | 2018-12-25 09:05 | MORECARE ---
CASE MANAGEMENT DISCHARGE SUMMARY PATIENT: TAWANA MARLOW UNIT: [id number] ADM DATE: 12/20/18 AGE: 83 : 37 SEX: F ROOM/BED: D.2136 AUTHOR: BERTHA,DOC PHYSICIAN: REFERRING PHYSICIAN: DOM SHEARER MD DATE OF SERVICE: 12/25/18 Discharge Plan Patient Name: TAWANA MARLOW Facility: [facility]:[place] : 1935 Planned Disposition: Nursing Facility [facility] Cert Anticipated Discharge Date: 12/24/18 Discharge Date: 12/24/2018 Expected LOS: 4 Initial Reviewer: [email or web address] Initial Review Date: 12/22/2018 Generated: 12/25/18 10:05 am Comments DCP- Discharge Planning Updated by [email or web address]: Janice Nichols on 12/22/18 2:[address] Patient Name: TAWANA MARLOW Admission Status: Elective Accout number: [id number] Admission Date: 12-20-2018 : 1935 Admission Diagnosis:INFECT/INFLM REACT D/T OTH CARDI/VASC DEV/IMPLNT/GRFT, Attending: DOM SHEARER Current LOS: 2 Anticipated DC Date: Planned Disposition: Nursing Facility [facility] Cert Primary Insurance: MEDICARE A & B Discharge Planning Comments: CM met with patient to complete initial dc planning assessment. CM educated patient on the CM role and verbal consent given by patient to complete assessment. 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 Patient plans to return there upon discharge. [facility]25. The [facility] will need to provide transportation back to facility upon discharge. Patient denied known discharge needs at this time. CM will continue to follow and will assist as needed with dc plans/needs. Hat Conditioner: Janice Nichols DCPIA - Discharge Planning Initial Assessment Updated by [email or web address]: Janice Nichols on 12/22/18 3:26 pm * Is the patient Alert and Oriented? Yes * How many steps to enter\exit or inside your home? * Preadmission Environment Upholsterer Apprentice Custodial * Facility Name [place] [address] * ADLs Partial Dependent * Partial ADLs (Assistance needed) Ambulation Bathing Dressing Eating Medication Management Toileting Transfers * Equipment Wheelchair * List name and contact numbers for known caregivers / representatives who currently or will assist patient after discharge: SWATHI ESPINOZA - [phone] * Verbal permission to speak to the caregivers and representatives has been obtained from the patient. N/A * Community resources currently utilized None * Additional services required to return to the preadmission environment? No * Can the patient safely return to the preadmission environment? Yes * Has this patient been hospitalized within the prior 30 days at any hospital? No Last DP export: 12/22/18 2:35 p Patient Name: TAWANA MARLOW Page [phone] at 0905 All edits/amendments must be made on the electronic document DICTATION DATE: 12/25/18904 DIRECTOR OF DIGITAL MARKETING: BALAJI 12/25/18904 RPT#: [id number] DC DATE:12/24/18 STATUS: DIS IN [facility] [address] [place] [address] END OF REPORT
--- NOTE | 2018-12-25 09:12 | MORECARE ---
CASE MANAGEMENT DISCHARGE SUMMARY PATIENT: TAWANA MARLOW UNIT: [id number] ADM DATE: 12/20/18 AGE: 83 : 37 SEX: F ROOM/BED: D.6826 AUTHOR: BERTHA,DOC PHYSICIAN: REFERRING PHYSICIAN: DOM SHEARER MD DATE OF SERVICE: 12/25/18 Discharge Plan Patient Name: TAWANA MARLOW Facility: [facility]:[place] : 1935 Planned Disposition: Nursing Facility [facility] Cert Anticipated Discharge Date: 12/24/18 Discharge Date: 12/24/2018 Expected LOS: 4 Initial Reviewer: [email or web address] Initial Review Date: 12/22/2018 Generated: 12/25/18 10:12 am Comments DCP- Discharge Planning Updated by [email or web address]: Jaswinder Puckett on 12/25/18 8:[address] Patient Name: TAWANA MARLOW Encounter No: [id number] : 1935 Primary Insurance: MEDICARE A & B Anticipated DC Date: 12-24-2018 Planned Disposition: Nursing Facility [facility] Cert External Planned Provider: [facility], MEDICARE SKILLED BED DCP follow-up note: CM RECEIVED TELEPHONE MESSAGE FROM [facility] WHO REQUESTED DOCUMENTAITON OF PT'S ADMIT AND DISCHARGE DATE THEY ARE GOING TO PLACE PT IN A SKILLED BED. CM FAXED ADMIT ORDER AND DISCHARGE ORDER TO [facility] AT [phone]. JASWINDER PUCKETT, CASE MANAGEMENT Jaswinder Puckett DCP- Discharge Planning Updated by [email or web address]: Janice Nichols on 12/22/18 2:[address] Patient Name: TAWANA MARLOW Admission Status: Elective Accout number: [id number] Admission Date: 12-20-2018 : 1935 Admission Diagnosis:INFECT/INFLM REACT D/T OTH CARDI/VASC DEV/IMPLNT/GRFT, Attending: DOM SHEARER Current LOS: 2 Anticipated DC Date: Planned Disposition: Nursing Facility [facility] Cert Primary Insurance: MEDICARE A & B Discharge Planning Comments: CM met with patient to complete initial dc planning assessment. CM educated patient on the CM role and verbal consent given by patient to complete assessment. Patient lives at [facility] [phone] where she is a retirement resident. Patient plans to return there upon discharge. Patient has dialysis MWF @ [facility] @ 0525. The [facility] will need to provide transportation back to facility upon discharge. Patient denied known discharge needs at this time. CM will continue to follow and will assist as needed with dc plans/needs. Wire Spiral Binder: Janice Magdalena DCPIA - Discharge Planning Initial Assessment Updated by [email or web address]: Janice Nichols on 12/22/18 3:26 pm * Is the patient Alert and Oriented? Yes * How many steps to enter\exit or inside your home? * Preadmission Environment [facility] * Facility Name [facility] [phone] * ADLs Partial Dependent * Partial ADLs (Assistance needed) Ambulation Bathing Dressing Eating Medication Management Toileting Transfers * Equipment Wheelchair * List name and contact numbers for known caregivers / representatives who currently or will assist patient after discharge: SWATHI ESPINOZA [phone] * Verbal permission to speak to the caregivers and representatives has been obtained from the patient. N/A * Community resources currently utilized None * Additional services required to return to the preadmission environment? No * Can the patient safely return to the preadmission environment? Yes * Has this patient been hospitalized within the prior 30 days at any hospital? No Last DP export: 12/25/18 8:05 a Patient Name: TAWANA MARLOW Page [phone] at 0912 All edits/amendments must be made on the electronic document DICTATION DATE: 12/25/18911 CAMPUS PRESIDENT: BALAJI 12/25/18911 RPT#: [id number] DC DATE:12/24/18 STATUS: DIS IN [facility] [address] [place] [address] END OF REPORT
== END 2018-12-24 14:52 | DRG 252 ==
LOC: D.OPS 15:14 → D.M2 15:18
PROVIDERS: Emergency Medicine; Internal Medicine Nephrology; ADMIT Surgery; ATTEND Surgery
PROC: B51W1ZZ Fluoroscopy of Dialysis Shunt/Fistula using Low Osmolar Contrast (ICD-10-PCS; 2018-12-22)
PROC: 03180JF Bypass Left Brachial Artery to Lower Arm Vein with Synthetic Substitute, Open Approach (ICD-10-PCS; 2018-12-22)
PROC: 5A1D70Z Performance of Urinary Filtration, Intermittent, Less than 6 Hours Per Day (ICD-10-PCS; 2018-12-22)
PROC: 05BY0ZZ Excision of Upper Vein, Open Approach (ICD-10-PCS; principal; 2018-12-22 10:15)
DX: T82.7XXA Infection and inflammatory reaction due to other cardiac and vascular devices, implants and grafts, initial encounter (principal); N18.6 End stage renal disease; I12.0 Hypertensive chronic kidney disease with stage 5 chronic kidney disease or end stage renal disease; Y83.8 Other surgical procedures as the cause of abnormal reaction of the patient, or of later complication, without mention of misadventure at the time of the procedure; E11.22 Type 2 diabetes mellitus with diabetic chronic kidney disease; Z99.2 Dependence on renal dialysis; F03.90 Unspecified dementia, unspecified severity, without behavioral disturbance, psychotic disturbance, mood disturbance, and anxiety